=== PATIENT | female | born 1975 | race Caucasian/White ===

== ENCOUNTER → 2018-10-28 06:45 | Outpatient (CLI) | payer OTHER, BC, SELFPAY ==
[2018-10-28 07:40] LABS: Absolute Neutrophil Count 4.7 X10^3/uL (2.0-7.7); Basophil# 0.08 X10^3/uL; Basophil% 1.1 % (0-1); Eosinophil# 0.23 X10^3/uL; Hematocrit 40.7 % (37-47); Hemoglobin 13.8 g/dl (12.0-15.0); Lymphocyte % 27.7 % (19-41); Mean Corp Hgb Conc 33.9 g/gl (32-36); Mean Corpuscular Hgb 29.2 pg (27.0-32.0); Mean Corpuscular Volume 86.2 fL (81-99); Mean Platelet Vol. 9.7 fl (6.2-12.0); Monocyte# 0.47 X10^3/uL; Monocyte% 6.2 % (0-10); Neutrophil # 4.68 X10^3/uL (2.7-7.7); Neutrophil % 61.9 % (47-70); Platelet Count 343 K/mm3 (150-450); RBC Distribution Width CV 12.5 % (11.6-14.6); RBC Distribution Width SD 39.8 fl (35.1-43.9); Red Blood Count 4.72 M/mm3 (4.2-5.4); White Blood Count 7.6 K/mm3 (4.4-11.0)
[2018-10-28 07:44] LABS: POSITIVE COUNT NO; POSITIVE DIFFERENTIAL NO; POSITIVE MORPHOLOGY NO
[2018-10-28 07:51] LABS: Microalbumin,Random Urine 11.7 mg/L (NO RANGE EST.); Microalbumin:Creatinine Ratio 68.8 mg/g CRE (<30 mg/g CRE)
[2018-10-28 07:57] LABS: AST(SGOT) 14 U/L (15-37); Alanine Aminotransfer ALT/SGPT 18 U/L (13-56); Albumin, Serum 3.8 g/dL (3.2-5.0); Alkaline Phosphatase 81 U/L (45-117); Anion Gap 6 (5-15); BUN 14 mg/dL (7-18); BUN/Creat Ratio 14.3 RATIO (10-20); Chloride 104 mmol/L (98-107); Cholesterol 208 mg/dL (200); Creatinine, Serum 0.98 mg/dL (0.55-1.02); EST Glomerular Filtration Rate 66 mL/min (>60); Est Glom Filt Rate - Afr Amer 80 mL/min (>60); Glucose 131 mg/dL (74-106); High Density Lipoprotein 82 mg/dL; Potassium 3.7 mmol/L (3.5-5.1); Protein, Total 7.8 g/dL (6.4-8.2); Sodium Level 138 mmol/L (136-145); Triglycerides 58 mg/dL; Very Low Density Lipoprotein 12 mg/dL (5-40)
[2018-10-28 08:01] LABS: Hemoglobin A1c 8.7 % (4.2-6.3)
== END ==
LOC: LAB 06:50
PROVIDERS: Family Provider Family Medicine; PCP Family Medicine; Referring Provider Family Medicine; Visit Provider Family Medicine
DX: E78.5 Hyperlipidemia, unspecified (principal); E10.9 Type 1 diabetes mellitus without complications
CPT/HCPCS: 36415; 80053; 80061; 82043; 82570; 83036; 85025

== ENCOUNTER 2019-05-22 17:41 | Emergency (ER) | payer OTHER, BC, SELFPAY ==
[2019-05-22 17:42] VITALS: BP 134/92; PULSE 112; RESP 17; TEMP 36.3; O2SAT 100; BMI 31.8
--- NOTE | 2019-05-22 18:05 | RAD_ITS ---
STUDY: X-RAY - LEFT FOOT CLINICAL: Female, 43 years old. LEFT FOOT PAIN -- HEARD A and quot;SNAP and quot; WHEN WALKING TECHNIQUE: 3 view(s) of the foot. COMPARISON: None. FINDINGS: Normal talus, calcaneus, and tarsal bones. Normal visualized subtalar, talonavicular, calcaneocuboid, tarsal and tarsometatarsal articulations. Normal metatarsi. Normal metatarsophalangeal joint of the great toe. Normal tibial and fibular sesamoid bones. Normal interphalangeal joint of the great toe. Normal phalanges of the great toe. Normal second through fifth metatarsophalangeal joints. Normal interphalangeal joints and phalanges of the lesser toes. The soft tissue structures are unremarkable. RAD/Foot min 3 Views IMPRESSION: Normal x-ray examination of the foot. Electronically Signed: Valdemar Quintanilla MD at 18:47 EST , Service support ,
--- NOTE | 2019-05-22 18:15 | RAD_ITS ---
STUDY: X-RAY - LEFT CALCANEUS REASON FOR EXAM: Female, 43 years old. LEFT FOOT PAIN -- HEARD A and quot;SNAP and quot; WHEN WALKING TECHNIQUE: 2 view(s) of the calcaneus were obtained. COMPARISON: None. FINDINGS: There is NO fracture. There are small calcaneal spurs. Soft tissues are unremarkable. RAD/Calcaneus min 2 Views IMPRESSION: Normal x-ray examination of the calcaneus. Electronically Signed: Valdemar Quintanilla MD at 18:43 EST , Service support ,
--- NOTE | 2019-05-22 18:34 | ED.VIS.UPPEX ---
History of Present Illness Chief Complaint: Lower Extremity Injury Informant: Patient Onset: Today Context: Sudden Onset - w/ walking up steps; no injury but heard a snap coming from her left foot Timing: Continuous Quality of Pain: Aching Location: left heel Current Severity: Moderate Maximum Severity: Severe Worsened by: weight bearing Relieved by: rest Associated Symptoms: Negative for: Parasthesia, Weakness, Loss of Funtion Narrative: Patient has been having discomfort in her left heel for 11 months. It has been sore. She saw her doctor about it. All of a sudden today with walking it is acutely worse. She heard a snap coming from that area but does not know exactly where it was from. Dorsiflexion of her foot makes the pain worse as does weightbearing. No other injuries. - Past Medical History (1) Diabetes type 1, uncontrolled Status: Chronic Past Medical History - Allergies and Home Meds Allergies/Adverse Reactions: Allergies prednisone Allergy (Mild, Verified 05/22/19 17:41) Unknown povidone-iodine [From Betadine] Allergy (Verified 05/22/19 17:41) Rash soap [From Betadine] Allergy (Verified 05/22/19 17:41) Rash Primary Care Physician: Cindy Weber DO [Primary Care Provider] - Lives: With Family Smoking Status: Never smoker Review of Systems General: Denies: Chills, Fever, Sweats Musculoskeletal: Reports: Extremity Pain. Denies: Neck pain, Back pain, Swelling Skin: Denies: Rash, Wounds Neurological: Denies: Headache, Weakness, Numbness Physical Exam Vital Signs/Narrative: Vital Signs Temp Pulse Resp BP Pulse Ox 05/22/19 17:42 97.3 F L 112 H 17 134/92 H 100 General: Well nourished, Well developed Head: Normocephalic, Atraumatic Extremeties: Normal inspection left foot and ankle. Tender at the calcaneus. Nontender just anterior to the calcaneus and the plantar fascia. Strong plantar flexion, nontender Achilles which appears to be intact. Limited dorsiflexion due to pain at the calcaneus. No edema or sign of an injury or laceration or bruising. No midfoot or forefoot or ankle tenderness. Skin: Normal color, No rash, No Trauma Neurological: Alert, Oriented x3, Cranial nerves II-XII grossly intact, Normal Strength, Normal Sensation Psychological: Normal affect, Normal Mood Diagnostic/Tx/Re-eval Clinical Impression(s) from Imaging Studies Foot X-Ray 05/22/19 18:05 IMPRESSION: Normal x-ray examination of the foot. Electronically Signed: Valdemar Quintanilla MD at 18:47 EST , Service support , Os Calcis X-ray 05/22/19 18:15 IMPRESSION: Normal x-ray examination of the calcaneus. Electronically Signed: Valdemar Quintanilla MD at 18:43 EST , Service support , - Medical Decision Making X-rays are unremarkable. I think she should follow-up with podiatry. She is in agreement. She is given postop shoe and crutches and she is fine using ibuprofen as needed. She is comfortable with that plan. ED Disposition - Plan for ED Patient: Disposition: Home or Assisted Living Diagnosis: Left foot pain Instructions: Sprain Foot Referrals: Trudy Johnson DPM [STAFF PHYSICIAN] - (call for appt)
[2019-05-22 20:33] VITALS: BP 113/71; PULSE 76; RESP 17; O2SAT 99
== END 2019-05-22 20:37 | disposition home or self-care (01) ==
PROVIDERS: Emergency Provider Emergency Medicine; Family Provider Family Medicine; PCP Family Medicine
DX: M79.672 Pain in left foot (principal); E10.9 Type 1 diabetes mellitus without complications; Z79.4 Long term (current) use of insulin
CPT/HCPCS: 73630; 73650; 99283

== ENCOUNTER → 2020-01-24 07:01 | Outpatient (CLI) | payer OTHER, BC, SELFPAY | PROVIDERS: PCP Family Medicine; Visit Provider Family Medicine | DX: E10.9 Type 1 diabetes mellitus without complications (principal); Z51.81 Encounter for therapeutic drug level monitoring | CPT/HCPCS: 36415 ==

== ENCOUNTER → 2023-09-12 | Outpatient (CLI) | payer OTHER, BC, SELFPAY ==
--- NOTE | 2023-09-12 07:16 | BI_ITS ---
MAMMOGRAPHY - BILATERAL SCREENING REASON FOR EXAM: Female, 48 years old. Routine annual screening examination. PERTINENT HISTORY: Aunt with breast cancer. TECHNIQUE: Digital bilateral breast milla (3D mammographic acquisition) in the CC and MLO projections. 2-D mediolateral oblique (MLO) and craniocaudad (CC) views of both breasts were obtained. CAD: Full Field Digital Mammography with Computer Added Detection was performed. COMPARISON: Comparison is made with prior study dated July 26, 2016. FINDINGS: Breast Composition: The breasts are extremely dense, which lowers the sensitivity of mammography. There are no dominant masses or suspicious calcifications. No other significant abnormalities are identified. There has been no significant change since the prior study. BI/SCRN MAMM (CAD)W/MILLA BILAT IMPRESSION: Stable bilateral screening mammogram. Yearly follow-up mammogram recommended. (A) ASSESSMENT CATEGORY: BIRADS Category 1: Negative. A letter regarding these results will be sent to the patient by the facility within 30 days. Approximately 10% of breast cancers are not detected by mammography. A normal mammogram should not delay biopsy of a clinically suspicious abnormality. [id number] Electronically Signed: Ronnie Perry MD at 10:14 EDT ,
== END | disposition home or self-care (01) ==
LOC: OPBI 07:13
PROVIDERS: PCP Family Medicine; Referring Provider Family Medicine; Visit Provider Family Medicine
DX: Z12.31 Encounter for screening mammogram for malignant neoplasm of breast (principal)
CPT/HCPCS: 77063; 77067

== ENCOUNTER → 2024-12-02 | Outpatient (CLI) | payer OTHER, BC, SELFPAY ==
--- NOTE | 2024-12-02 17:25 | RAD_ITS ---
PROCEDURE: SHOULDER MIN 2 VIEWS 12/02/2024 REASON FOR EXAM: CONCERN FOR FRACTURE TECHNIQUE: SHOULDER MIN 2 VIEWS COMPARISON: None RAD/Shoulder min 2 Views IMPRESSION: No acute fracture or dislocations. Mild degenerative changes of the left should er. No acute soft tissue abnormalities. No radiographic foreign body. Reading Location: [id number]
== END | disposition home or self-care (01) ==
PROVIDERS: PCP Family Medicine; Referring Provider Nurse Practitioner Family; Visit Provider Nurse Practitioner Family
DX: M25.512 Pain in left shoulder (principal)
CPT/HCPCS: 73030

== ENCOUNTER → 2025-04-28 | Outpatient (CLI) | payer OTHER, BC, SELFPAY ==
--- NOTE | 2025-04-28 07:08 | MRI_ITS ---
PROCEDURE: UPPER EXT JOINT ONLY(ROUTINE) 04/28/2025 REASON FOR EXAM: LEFT SHOULDER PAIN AND LIMITED ROM TECHNIQUE: Procedure Code: MRIUEJ Modality: MR Procedure: UPPER EXT JOINT ONLY(ROUTINE) T1, T2, PD, multiplanar and multisequence images were obtained of the left shoulder without IV contrast administration. COMPARISON: None FINDINGS: Bone Marrow: There is a bony contusion or occult fracture. Rotator cuff: There is no significant muscular atrophy. There is severe distal supraspinatus tendinopathy without full-thickness tear or retraction. The infraspinatus, subscapularis, and teres minor appear intact. Labrum: There is no visible labrum tear. Biceps tendon: The biceps tendon is present in the biceps tendon groove, with intact anchors. AC joint. There is mild AC joint hypertrophy with a trace effusion. There is no evidence of AC joint separation. There is a type 2 acromion. Effusion: There is a small joint effusion. There is fluid in the subacromial subdeltoid bursa, with bursitis. MRI/Upper Ext Joint Only(Routine) IMPRESSION: There is severe distal supraspinatus tendinopathy without full-thickness tear o r retraction. There is mild AC joint hypertrophy with a trace effusion. There is a small joint effusion. There is fluid in the subacromial subdeltoid bursa, with bursitis. Reading Location: [facility]
--- OUTSIDE RECORDS SUMMARY | 2025-04-28 07:11 | XMS RPT_ITS | CCD ---
Author Organization [facility] Inform ion Partnership [facility] Care Team Providers Care Can Line Examiner Name Role Phone Valeria Sanabria NP Unavailable Dr. Cindy Weber DO Primary Care Provider Rahul CONSULTING HR PROFESSIONAL-C, Suzi Attending Provider [phone] Rahul CONSULTING HR PROFESSIONAL-CSuzi Referring Provider [phone] Cindy Weber Primary Care Unavailable Suzi Kay Referring Unavailable Suzi Kay Attending Unavailable Cindy Weber DO Primary Care Provider CINDY WEBER Primary Care Unavailable PRUDENCIO MOSER Attending Unavailable CINDY WEBER Primary Care Unavailable GWENDOLYN MCCALL Attending Unavailable GWENDOLYN MCCALL Referring Unavailable CINDY WEBER Primary Care Unavailable Allergies Allergy Classification Reported Allergen(s) Allergy Type Date of Onset Reaction(s) Facility (6 sources) predniSONE; Translations: [prednisone] drug allergy 4 BS went over 500, Raises blood sugar [facility] Work Phone: (4 sources) Povidone-Iodine ; Translations: [POVIDONE-IODIN E] Drug Allergy 5 [facility] Medications Current Medications Medication Drug Class(es) Dates Sig (Normalized) Sig (Original) [id number] actuat albuterol 0.09 mg/actuat metered dose inhaler (12 sources) beta2-Adrenergic Agonist Start: 01-07-2025 take 2 puff(s) by inhalation every six hours as needed for wheezing albuterol HFA (PROVENTIL HFA, VENTOLIN HFA) 90 mcg/actuation inhaler Inhale 2 puffs as instructed every 6 hours as needed for wheezing/shortnes s of breath. 8 g 01/07/2025 Active Start: 03-18-2021 take 2 puff(s) by in halation every four hours as needed for wheezing albuterol HFA (PROVENTIL HFA, VENTOLIN HFA) 90 mcg/actuation inhaler Indications: Sinobronchitis Inhale 2 Puffs as instructed every 4 hours as needed for wheezing/shortness of breath. 1 Each 1 03/18/2021 Active Start: 04-03-2013 take 2 puff(s) by in halation every four hours as needed PROAIR HFA 108 (90 Base) MCG/ACT AERS 2 puff INH every 4hr as needed shortness of breath ALBUTEROL SULFATE [id number] Yi Montes MD Start: 04-03-2013 take 2 puff(s) by in halation every four hours as needed PROAIR HFA 108 (90 Base) MCG/ACT AERS 2 puff INH every 4hr as needed shortness of breath ALBUTEROL SULFATE [id number] Yi Montes MD Start: 08-13-2010 End: 08-23-2010 VENTOLIN HFA 108 (90 Base) M CG/ACT AERS 1-2 puffs every 4 hours as needed ALBUTEROL SULFATE [id number] Sammie Branch PA-C Start: 08-13-2010 End: 08-23-2010 VENTOLIN HFA 108 (90 Base) M CG/ACT AERS 1-2 puffs every 4 hours as needed ALBUTEROL SULFATE [id number] Sammie Branch PA-C 24 hr amphetamine aspartate 5 mg / amphetamine sulfate 5 mg / dextroamphetamine saccharate 5 mg / dextroamphetamine sulfate 5 mg extended release oral capsule (2 sources) Central Nervous System Stimulant Start: 12-20-2020 take 1 capsule by mouth once daily Dextroamphetamine-Amphetamine 20 mg capsule,extended release 24hr Active 20 mg PO DAILY 0 December 20, 2020 12:00am benzonatate 100 mg oral capsule (16 sources) Non-narcotic Antitussive Start: 01-07-2025 End: 01-14-2025 take 1 capsule by mouth every eight hours as needed benzonatate (TESSALON PERLE) 100 mg capsule Take 1 capsule by mouth three times a day as needed for cough for up to 7 days. 21 capsule 01/07/2025 01/14/2025 Active Start: 12-25-2018 take 2 capsules by m outh every eight hours as needed benzonatate (TESSALON PERLES) 100 mg capsule Take 2 capsules by mouth three times daily as needed. 30 capsule 12/25/2018 Active Start: 09-09-2012 End: 01-12-2014 take 1 tablet by mouth three times daily as needed for cough BENZONATATE 200 MG CAPS One tablet by mouth three times daily as needed cough, swallow in whole BENZONATATE [id number] Yi Montes MD Start: 10-18-2011 End: 12-18-2011 take 1 tablet by mouth twice daily as needed for cough BENZONATATE 200 MG CAPS One tablet by mouth twice daily as needed cough, swollow it in whole BENZONATATE [id number] Yi Montes MD COMPOUNDED PRESCRIPTION (3 sources) Start: 02-21-2011 COMPOUNDED PRESCRIPTION by MISCELLANEOUS route. Massotherapy for chronic pain. 1 Units 9 02/21/2011 Active doxycycline hyclate 100 mg oral tablet (7 sources) Tetracycline -class Drug Start: 01-07-2025 End: 01-12-2025 take 1 tablet by mouth twice daily doxycycline (VIBRA-TABS) 100 mg tablet Take 1 tablet by mouth two times a day for 5 days. 10 tablet 01/07/2025 01/12/2025 Active Start: 06-16-2015 End: 08-12-2015 take 1 tablet by mouth twice daily DOXYCYCLINE HYCLATE 100 MG TABS 1 po Twice daily x 10 days DOXYCYCLINE HYCLATE [id number] Cindy Weber, FLUoxetine 10 mg oral capsule (2 sources) Serotonin Reuptake Inhibitor Start: 12-20-2020 take 1 capsule by mouth once daily Fluoxetine 10 mg capsule Active 10 mg PO DAILY December 20, 2020 12:00am fluticasone propionate 0.05 mg/actuat metered dose nasal spray (3 sources) Corticosteroid Start: 12-25-2018 take 2 spray(s) by mouth once daily fluticasone (FLONASE) 50 mcg/actuation nasal spray Use 2 Sprays in each nostril once daily. Rinse mouth after use. 1 Bottle 12/25/2018 Active Inhalational Spacing Device (1 source) Start: 01-07-2025 End: 01-07-2025 Inhalational Spacing Device 1 device one time only for 1 dose. 1 each 01/07/2025 01/07/2025 Active 3 ml insulin lispro 100 unt/ml cartridge (7 sources) Insulin Analogue Start: 12-20-2020 Insulin Lispro (Humalog U-100 Insulin) 100 unit/mL cartridge Active 1 sliding scale dose SC Use as Directed December 20, 2020 12:00am Start: 12-20-2020 Insulin Lispro (Humalog U-100 Insulin) 100 unit/mL cartridge Active 1 sliding scale dose SC Use as Directed December 20, 2020 12:00am Start: 08-06-2013 End: 07-26-2017 Insulin Lispro 100 UNIT/ML s olution Discontinued 0 U SQ THREE TIMES A DAY August 06, 2013 12:00am July 26, 2017 6:08pm Start: 08-06-2013 End: 07-26-2017 Insulin Lispro Discontinued 0 UNIT SQ THREE TIMES A DAY August 06, 2013 12:00am July 26, 2017 6:08pm Start: 07-16-2010 HUMALOG 100 UN IT/ML SOLN as directed INSULIN LISPRO (HUMAN) [id number] Valeria Sanabria NP Start: 07-16-2010 HUMALOG 100 UN IT/ML SOLN as directed INSULIN LISPRO (HUMAN) [id number] Valeria Sanabria NP lisinopril 40 mg oral tablet (12 sources) Angiotensin Converting Enzyme Inhibitor Start: 12-20-2020 Lisinopril 40 mg tab let Active 20 mg PO AT BEDTIME December 20, 2020 8:06am Type 1 diabetes mellitus with hyperglycemia Start: 12-20-2020 take 20 mg by mouth at bedtime Lisinopril Active 20 MG PO AT BEDTIME December 20, 2020 8:06am Start: 08-06-2013 End: 12-20-2020 take 1 tablet by mouth once daily lisinopril (ZESTRIL, PRINIVIL) 40 mg tablet Take 1 tablet by mouth once daily. 90 tablet 3 04/26/2015 Active methylPREDNISolone 4 mg oral tablet (2 sources) Corticosteroid Start: 09-19-2021 take 1 tablet by mouth once Methylprednisolone (Medrol (Pradip)) 4 mg tablets,dose pack Active 0 PO per package directions 21 September 19, 2021 12:00am PO PER PKG DIR MULTIVITAMIN TAB (3 sources) Start: 03-07-2005 MULTIVITAMIN TAB Take one(1) tablet daily. 0 03/07/2005 Active pravastatin sodium 20 mg oral tablet (12 sources) HMG-CoA Reductase Inhibitor Start: 12-20-2020 take 2 tablets by mouth at bedtime Pravastatin 20 mg tablet Active 40 mg PO AT BEDTIME December 20, 2020 8:06am Type 1 diabetes mellitus with hyperglycemia Start: 12-20-2020 take 40 mg by mouth at bedtime Pravastatin Active 40 MG PO AT BEDTIME December 20, 2020 8:06am Start: 08-06-2013 End: 12-20-2020 take 1 tablet by mouth once daily at bedtime pravastatin (PRAVACHOL) 20 mg tablet Take 1 tablet by mouth daily at bedtime. 90 tablet 3 04/26/2015 Active take 1 tablet by olivier th at bedtime PRAVASTATIN SODIUM 10 MG TABS One tablet by mouth at bedtime PRAVASTATIN SODIUM [id number] Valeria Sanabria NP predniSONE 10 mg oral tablet (13 sources) Corticosteroid Start: 01-19-2025 End: 01-28-2025 take 4 tablets by mouth once daily, then take 3 tablets by mouth once daily, then take 1 tablet by mouth once daily predniSONE (DELTASONE) 10 mg tablet Indications: Viral bronchitis Take 4 tablets by mouth once daily for 3 days, THEN 3 tablets once daily for 3 days, THEN 1 tablet once daily for 3 days. 24 tablet 01/19/2025 01/28/2025 Active Start: 06-16-2015 End: 08-12-2015 take 2 tablets by mouth once daily PREDNISONE 20 MG TABS 2 po daily x 5 days PREDNISONE [id number] Cindy Weber DO Start: 12-10-2013 End: 01-12-2014 take 1 tablet by mouth twice daily PREDNISONE 20 MG TABS .One tablet by mouth twice daily x 3 days PREDNISONE [id number] Jianming Montes MD valACYclovir 1000 mg oral tablet (2 sources) Herpesvirus Nucleoside Analog DNA Polymerase Inhibitor, Herpes Simplex Virus Nucleoside Analog DNA Polymerase Inhibitor, Herpes Zoster Virus Nucleoside Analog DNA Polymerase Inhibitor Start: 09-19-2021 Valacyclovir 1 gram tablet Active 1000 mg PO THREE TIMES A DAY September 19, 2021 12:00am Start: 09-19-2021 take 1000 mg by mout h three times daily Valacyclovir Active 1000 MG PO THREE TIMES A DAY September 19, 2021 12:00am Completed/Discontinued Medications Medication Drug Class(es) Dates Sig (Normalized) Sig (Original) amoxicillin 500 mg oral capsule (6 sources) Penicillin-class Antibacterial Start: 09-04-2012 End: 04-03-2013 take 1 tablet by mouth three times daily AMOXICILLIN 500 MG CAPS One tablet by mouth three times daily AMOXICILLIN [id number] Yi Montes MD aspirin 81 mg chewable tablet (11 sources) Nonsteroidal Anti-inflammatory Drug Start: 08-06-2013 End: 12-20-2020 take 1 tablet by mouth once daily Aspirin 81 MG tablet,chewable Discontinued 81 mg PO DAILY@0800 August 06, 2013 12:00am December 20, 2020 8:06am Start: 12-18-2011 take 1 tablet by olivier th once daily ADULT ASPIRIN LOW STRENGTH 81 MG TBDP One tablet by mouth daily ASPIRIN Saranya Gloria [facility] Start: 03-07-2005 ASPIRIN 81 MG TAB Take one (1) tablet daily . 0 03/07/2005 Active azithromycin 250 mg oral tablet (18 sources) Macrolide Antimicrobial Start: 02-16-2011 End: 12-10-2013 take 2 tablets by mouth once daily, then take 1 tablet by mouth once daily, then take 2-5 tablets by mouth AZITHROMYCIN 250 MG TABS two tablets by mouth on day one, and one tablets daily one day 2-5 AZITHROMYCIN [id number] Yi Montes MD GUAIFENESIN-CODEINE (18 sources) Opioid Agonist Start: 09-04-2012 take 5 mL by mouth every six hours as needed for cough CHERATUSSIN AC 100-10 MG/5ML SYRP 5ml by mouth every 6hr as needed cough GUAIFENESIN-CODEIN E [id number] Yi Montes MD Start: 09-04-2012 End: 01-12-2014 take 5 mL by mouth every six hours as needed for cough CHERATUSSIN AC 100-10 MG/5ML SYRP 5ml by mouth every 6hr as needed cough GUAIFENESIN-CODEINE [id number] Yi Montes MD Start: 10-16-2011 End: 12-18-2011 take 5 mL by mouth every six hours as needed for cough CHERATUSSIN AC 100-10 MG/5ML SYRP 5ml by mouth every 6hr as needed cough, avoid driving or operating machine under the influence of medication. GUAIFENESIN-CODEINE [id number] Yi Montes MD Start: 10-16-2011 take 5 mL by mouth e very six hours as needed for cough CHERATUSSIN AC 100-10 MG/5ML SYRP 5ml by mouth every 6hr as needed cough, avoid driving or operating machine under the influence of medication. GUAIFENESIN-CODEINE [id number] Yi Montes MD Start: 02-16-2011 End: 01-12-2014 take 5 mL by mouth every six hours as needed for cough CHERATUSSIN AC 100-10 MG/5ML SYRP 5ml by mouth every 6hr as needed cough GUAIFENESIN-CODEINE [id number] Yi Montes MD Start: 02-16-2011 End: 03-20-2011 CHERATUSSIN AC 100-10 MG/5ML SYRP 5ml every 6hr as needed cough GUAIFENESIN-CODEINE [id number] Yi Montes MD Start: 02-16-2011 CHERATUSSIN AC 100-10 MG/5ML SYRP 5ml every 6hr as needed cough GUAIFENESIN-CODEINE [id number] Yi Montes MD DEXTROMETHORPHAN-GUAIFENESIN (6 sources) Uncompetitive I-gxtvyb-E-aspartate Receptor Antagonist, Sigma-1 Agonist Start: 02-16-2011 End: 10-16-2011 MUCINEX DM MAXIMUM STRENGTH 60-1200 MG [id number] DEXTROMETHORPHAN-GUAIFENESIN [id number] Yi Montes MD Start: 02-16-2011 End: 10-16-2011 MUCINEX DM MAXIMUM STRENGTH 60-1200 MG [id number] KATHYTHORPHAN-GUAIFENESIN [id number] Yi Montes MD Start: 02-16-2011 MUCINEX DM MAX IMUM STRENGTH 60-1200 MG [id number] DEXTROMETHORPHAN-GUAIFENESIN [id number] Yi Montes MD NORETHINDRONE ACET-ETHINYL EST (2 sources) Estrogen Start: 11-18-2012 take 1 tablet by mouth once daily MICROGESTIN 1/20 1-20 MG-MCG TABS One tablet by mouth daily NORETHINDRONE ACET-ETHINYL EST [id number] Yi Montes MD Start: 11-18-2012 End: 01-12-2014 take 1 tablet by mouth once daily MICROGESTIN 1/20 1-20 MG-MCG TABS One tablet by mouth daily NORETHINDRONE ACET-ETHINYL EST [id number] Yi Montes MD NORGESTIM-ETH ESTRAD TRIPHASIC (1 source) Progestin, Estrogen Start: 01-16-2011 take 1 tablet by mouth once daily ORTHO TRI-CYCLEN LO 0.18/0.215/0.25 MG-25 MCG TABS One tablet by mouth daily NORGESTIM-ETH ESTRAD TRIPHASIC [id number] Yi Montes MD NORETHINDRONE ACET-ETHINYL EST (8 sources) Progestin, Estrogen Start: 11-18-2012 take 1 tablet by mouth once daily MICROGESTIN 1/20 1-20 MG-MCG TABS One tablet by mouth daily NORETHINDRONE ACET-ETHINYL EST [id number] Yi Montes MD Start: 11-18-2012 End: 01-12-2014 take 1 tablet by mouth once daily MICROGESTIN 1/20 1-20 MG-MCG TABS One tablet by mouth daily NORETHINDRONE ACET-ETHINYL EST [id number] Yi Montes MD Start: 01-17-2011 End: 03-20-2011 take 1 tablet by mouth once daily LOESTRIN /20 (21) TABS One tablet by mouth daily as directed NORETHINDRONE ACET-ETHINYL EST TABS [id number] Yi Montes MD Start: 01-17-2011 take 1 tablet by olivier th once daily LOESTRIN 1/20 (21) TABS One tablet by mouth daily as directed NORETHINDRONE ACET-ETHINYL EST TABS [id number] Yi Montes MD fluconazole 200 mg oral tablet (6 sources) Azole Antifungal Start: 08-11-2011 End: 10-16-2011 take 1 tablet by mouth once FLUCONAZOLE 200 MG TABS One tablet by mouth once FLUCONAZOLE [id number] Yi Montes MD GUAIFENESIN (3 sources) Start: 07-16-2010 End: 07-23-2010 take 1 tablet by mouth every twelve hours MUCINEX 600 MG [id number] 1 tab by mouth every 12 hours GUAIFENESIN [id number] Maria Teresa CONN Start: 07-16-2010 End: 07-23-2010 take 1 tablet by mouth every twelve hours MUCINEX 600 MG [id number] 1 tab by mouth every 12 hours GUAIFENESIN [id number] Maria Teresa CONN hydrocortisone 10 mg/ml / neomycin 3.5 mg/ml / polymyxin b 36667 unt/ml otic suspension (6 sources) Aminoglycoside Antibacterial, Polymyxin-class Antibacterial, Corticosteroid Start: 02-17-2013 End: 01-12-2014 [id number] 3.5-43080-3 SUSP 3-4 gtt apply to affected ear three times a day [id number] Yi Montes MD ibuprofen 800 mg oral tablet (3 sources) Nonsteroidal Anti-inflammatory Drug Start: 04-09-2015 take 1 tablet by mouth three times daily IBUPROFEN 800 MG TABS 1 po TID IBUPROFEN [id number] Cindy Weber DO insulin aspart, human 100 unt/ml injectable solution (13 sources) Insulin Analogue Start: 07-26-2017 End: 12-20-2020 Insulin Aspart U-100 (Novolog U-100 Insulin Aspart) 100 unit/mL solution Discontinued 0 SC daily 90 3 July 28, 2017 1:03pm December 20, 2020 8:05am Type 1 diabetes mellitus with hyperglycemia E10.65 pt uses up to 100U qd via insulin pump SC QDAY Start: 04-26-2015 insulin aspart (NOVOLOG) 100 unit/mL soln Use as directed in the insulin pump up to 100 units daily0 90 mL 3 04/26/2015 Active End: 02-16-2011 NOVOLOG PENFILL 100 UNIT/ML SOCT as directed up to 100 units daily INSULIN ASPART [id number] Yi Montes MD levoFLOXacin 500 mg oral tablet (6 sources) Quinolone Antimicrobial Start: 10-20-2011 End: 12-18-2011 take 1 tablet by mouth once daily LEVAQUIN 500 MG TABS One tablet by mouth daily LEVOFLOXACIN [id number] Yi Montes MD MASSOTHERAPY (6 sources) Start: 06-14-2011 MASSOTHERAPY as needed DX: neck and back pain MASSOTHERAPY Yi Montes MD Start: 06-14-2011 End: 12-12-2016 MASSOTHERAPY as needed DX: n carin and back pain MASSOTHERAPY Saranya Gloria LPN MULTIPLE VITAMIN (4 sources) Start: 01-12-2014 End: 12-12-2016 take 1 tablet by mouth once daily MULTIVITAMINS CAPS One tablet by mouth daily MULTIPLE VITAMIN [id number] Saranya Gloria LPN Start: 01-12-2014 take 1 tablet by olivier th once daily MULTIVITAMINS CAPS One tablet by mouth daily MULTIPLE VITAMIN [id number] Yi Montes MD MULTIPLE VITAMIN (2 sources) Start: 01-12-2014 End: 12-12-2016 take 1 tablet by mouth once daily MULTIVITAMINS CAPS One tablet by mouth daily MULTIPLE VITAMIN [id number] Saranya Gloria LPN Start: 01-12-2014 take 1 tablet by olivier th once daily MULTIVITAMINS CAPS One tablet by mouth daily MULTIPLE VITAMIN [id number] Yi Montes MD NORETHINDRONE ACET-ETHINYL EST TABS (2 sources) Start: 01-17-2011 take 1 tablet by mouth once daily LOESTRIN 20 (21) TABS One tablet by mouth daily as directed NORETHINDRONE ACET-ETHINYL EST TABS [id number] Yi Montes MD Start: 01-17-2011 End: 03-20-2011 take 1 tablet by mouth once daily LOESTRIN 20 (21) TABS One tablet by mouth daily as directed NORETHINDRONE ACET-ETHINYL EST TABS [id number] Yi Montes MD omeprazole 20 mg delayed release oral capsule (12 sources) Proton Pump Inhibitor Start: 08-02-2015 End: 12-12-2016 OMEPRAZOLE 20 MG CPDR 1 po daily OMEPRAZOLE [id number] Cindy Weber DO Start: 12-18-2011 End: 01-12-2014 take 1 tablet by mouth once daily as needed for gastroesophageal reflux disease PRILOSEC OTC 20 MG TBEC One tablet by mouth daily as needed GERD OMEPRAZOLE MAGNESIUM [id number] Yi Montes MD Start: 12-18-2011 End: 01-12-2014 take 1 tablet by mouth once daily as needed for gastroesophageal reflux disease PRILOSEC OTC 20 MG TBEC One tablet by mouth daily as needed GERD OMEPRAZOLE MAGNESIUM [id number] Yi Montes MD sertraline 50 mg oral tablet (20 sources) Serotonin Reuptake Inhibitor Start: 08-12-2015 take 1 tablet by mouth once daily SERTRALINE HCL 50 MG TABS 1 po daily SERTRALINE HCL [id number] Cindy Weber DO Start: 02-02-2015 End: 08-12-2015 take 1 tablet by mouth once daily at bedtime, then take 2 tablets by mouth once daily at bedtime SERTRALINE HCL 25 MG TABS 1 po daily at bedtime x 2 weeks then 2 po daily at bedtime SERTRALINE HCL [id number] Cindy Weber DO Start: 01-12-2014 End: 01-29-2015 take 1 tablet by mouth once daily SERTRALINE HCL 50 MG TABS One tablet by mouth daily SERTRALINE HCL [id number] Cindy Weber DO End: 10-16-2011 take 1 tablet by mouth once daily SERTRALINE HCL 50 MG TABS One tablet by mouth daily SERTRALINE HCL [id number] Yi Montes MD SALINE (6 sources) Start: 07-16-2010 End: 01-12-2014 OCEAN NASAL SPRAY 0.65 % JOHN N 2-3 sprays each nostril every 4 hours as needed for congestion SALINE [id number] Maria Teresa CONN Start: 07-16-2010 End: 01-12-2014 OCEAN NASAL SPRAY 0.65 % JOHN N 2-3 sprays each nostril every 4 hours as needed for congestion SALINE [id number] Yi Montes MD Start: 07-16-2010 OCEAN NASAL SP RAY 0.65 % SOLN 2-3 sprays each nostril every 4 hours as needed for congestion SALINE [id number] Maria Teresa CONN SULFAMETHOXAZOLE-TRIMETHOPRI M (3 sources) Dihydrofolate Reductase Inhibitor Antibacterial, Sulfonamide Antimicrobial Start: 07-16-2010 End: 07-26-2010 take 1 tablet by mouth twice daily BACTRIM DS 800-160 MG TABS 1 tab by mouth 2 times daily SULFAMETHOXAZOLE-TRIMETHOPRIM [id number] Maria Teresa CONN Start: 07-16-2010 End: 07-26-2010 take 1 tablet by mouth twice daily BACTRIM DS 800-160 MG TABS 1 tab by mout h 2 times daily SULFAMETHOXAZOLE-TRIMETHOPRIM [id number] Maria Teresa CONN NORGESTIM-ETH ESTRAD TRIPHASIC (2 sources) Vitamin B12 Start: 01-16-2011 take 1 tablet by mouth once daily ORTHO TRI-CYCLEN LO 0.18/0.215/0.25 MG-25 MCG TABS One tablet by mouth daily NORGESTIM-ETH ESTRAD TRIPHASIC [id number] Yi Montes MD Problems Active Problems Problem Classification Problem Date Documented Date Episodic/Chronic Acute bronchitis (20 sources) Acute bronchitis; Translations: [Acute bronchitis, unspecified] Onset: 08-07-2005 Resolved: 12-10-2013 12-10-2013 Episodic Chronic obstructive pulmonary disease and bronchiectasis (1 source) Bronchitis, not specified as acute or chronic; Translations: [Sinobronchitis] Onset: 01-07-2025 Episodic Diabetes mellitus with complications (1 source) Type 1 diabetes mellitus uncontrolled; Translations: [Diabetes mellitus without mention of complication, type I [juvenile type], uncontrolled] 05-22-2019 Chronic Diabetes mellitus with complications (2 sources) Diabetes mellitus with complications; Translations: [Uncontrolled type 1 diabetes mellitus without complication, with long-term current us] 05-29-2017 Comment on above: Here for sensor inte rpretation. Pt notes of diet, BG and bolus's reviewed with patinet as well as sensor download Diabetes mellitus without complication (7 sources) Type 1 diabetes mellitus; Translations: [Uncontrolled type 1 diabetes mellitus] 07-16-2010 Chronic Esophageal disorders (3 sources) Gastroesophageal reflux disease; Translations: [Gastro-esophageal reflux disease without esophagitis] Onset: 12-18-2011 12-18-2011 Chronic Menstrual disorders (3 sources) Irregular periods; Translations: [Irregular menstruation, unspecified] Onset: 01-16-2011 01-16-2011 Chronic Other connective tissue disease (2 sources) Lateral epicondylitis of left humerus; Translations: [Lateral epicondylitis, left elbow] 12-20-2020 Episodic Other connective tissue disease (2 sources) Radial styloid tenosynovitis; Translations: [Radial styloid tenosynovitis [de Quervain]] 12-20-2020 Episodic Other connective tissue disease (2 sources) Foot pain; Translations: [Pain in left foot] 05-23-2019 Episodic Other female genital disorders (3 sources) Premenstrual dysphoric disorder; Translations: [Premenstrual tension syndrome] Onset: 01-16-2011 01-16-2011 Chronic Other lower respiratory disease (2 sources) Cough; Translations: [Subacute cough] 01-19-2025 Episodic Other non-traumatic joint disorders (1 source) Pain in left shoulder; Translations: [Pain in left shoulder] Onset: 12-08-2024 Episodic Other upper respiratory disease (3 sources) Allergic rhinitis, cause unspecified; Translations: [Allergic rhinitis, cause unspecified] Onset: 08-13-2010 08-13-2010 Chronic Other upper respiratory infections (2 sources) Chronic sinusitis; Translations: [Chronic sinusitis, unspecified] Onset: 01-07-2025 01-07-2025 Chronic Unclassified (4 sources) General examination of patient ; Translations: [Encounter for other general examination] Onset: 03-20-2011 03-20-2011 Unclassified (3 sources) Acute reaction to stress; Translations: [Acute reaction to stress] Onset: 01-12-2014 01-12-2014 Unclassified (1 source) Subacute cough; Translations: [Subacute cough] Onset: 01-19-2025 Viral infection (2 sources) Herpes zoster; Translations: [Zoster without complications] 09-19-2021 Episodic Past or Other Problems Problem Classification Problem Date Documented Date Episodic/Chronic Genitourinary symptoms and ill-defined conditions (3 sources) Abnormal urinalysis; Translations: [Unspecified abnormal findings in urine] Onset: 02-17-2013 02-17-2013 Episodic Inflammation, infection of eye (3 sources) Iritis; Translations: [Unspecified iridocyclitis] Onset: 03-06-2011 03-20-2011 Episodic Other connective tissue disease (3 sources) Acquired trigger finger; Translations: [Trigger finger, unspecified finger] Onset: 02-04-2013 02-04-2013 Episodic Other ear and sense organ disorders (6 sources) Otitis externa; Translations: [Unspecified otitis externa, unspecified ear] Onset: 02-17-2013 Resolved: 04-03-2013 04-03-2013 Episodic Other eye disorders (3 sources) Pain in eye; Translations: [Ocular pain, left eye] Onset: 03-06-2011 03-06-2011 Episodic Other lower respiratory disease (5 sources) Chronic cough; Translations: [Cough] Onset: 08-13-2010 Resolved: 09-12-2010 07-28-2015 Episodic Other lower respiratory disease (1 source) Cough; Translations: [Cough] Onset: 08-13-2010 Resolved: 09-12-2010 08-13-2010 Episodic Other upper respiratory disease (3 sources) Hoarse; Translations: [Dysphonia] Onset: 12-10-2013 12-10-2013 Episodic Other upper respiratory infections (12 sources) Acute sinusitis; Translations: [Acute sinusitis, unspecified] Onset: 07-16-2010 Resolved: 02-17-2013 10-16-2011 Episodic Spondylosis; intervertebral disc disorders; other back problems (6 sources) Neck pain; Translations: [Cervicalgia] Onset: 06-14-2011 Resolved: 02-17-2013 06-15-2011 Episodic Unclassified (3 sources) FH: premature coronary heart disease; Translations: [Family history of ischemic heart disease and other diseases of the circulatory system] Onset: 01-16-2011 01-17-2011 Episodic Unclassified (2 sources) application of CGM 02-01-2022 Comment on above: Continous glucose mo nitoring Unclassified (2 sources) continous glucose monitoring interpretation 02-01-2022 Comment on above: See note below Results Test Name Value Interpretation Reference Range Facility OV 01-19-2025 CNOV Office Visit ([facility]) RACHEL MONEA ([id number]) 1975 F Date Time Provider Department 01/19/25 12:15 PM GWENDOLYN MCCALL During your visit today, we recorded the following information about you: Temperature Pulse Respiration Blood pressure 97.9 degrees 93/minute 19/minute 144/82 Weight 85.4 kg Gwendolyn Mccall, LOU.CREDIT COLLECTIONS SPECIALIST 01/19/2025 1:13 PM Signed [facility] Subjective Rachel Monae is a 49 year old female. Patient presents with: Cough: Chest congestion, sob x 2 weeks Cough Cough and Congestion: - Cough and congestion x2 weeks. - Using Mucinex DM without relief; reports feeling like there's something in my chest that I need to cough out. - Previously prescribed Tessalon Perles, but has been taking Repetussin instead. - Denies fever, chills, or sweating. - Reports significant post-nasal drainage, but denies nasal congestion. - Cough worsens when trying to sleep. - Took doxycycline as prescribed for sinobronchitis on 01/07/25-no improvement. Dyspnea: - Dyspnea x2 weeks. - Using albuterol inhaler Q4H for relief. Back Pain: - Localized back pain, exacerbated by standing up and bending down. Review of Systems Respiratory: Positive for cough. Constitutional: (+) sleep disturbance, (-) fever, (-) chills, (-) diaphoresis Ears/Nose/Mouth/Thro at: (+) rhinorrhea, (-) nasal congestion Respiratory: (+) cough, (+) shortness of breath, (-) sputum production Musculoskeletal: (+) back pain Endocrine: (+) cold intolerance Objective BP 144/82 Pulse 93 Temp 36.6 ?C (97.9 ?F) Resp 19 Wt 85.4 kg (188 lb 4.4 oz) LMP 12/14/2014 SpO2 97% PAST MEDICAL HISTORY Diagnosis Date - Type I (juvenile type) diabetes mellitus without mention of complication, uncontrolled PAST SURGICAL HISTORY Procedure Laterality Date - PAST SURGICAL HISTORY OF 05/28/98 removal of axillary cyst ALLERGIES Betadine [Povidone-Iodine] MEDICATIONS - albuterol HFA (PROVENTIL HFA, VENTOLIN HFA) 90 mcg/actuation inhaler Inhale 2 puffs as instructed every 6 hours as needed for wheezing/shortness of breath. - albuterol HFA (PROVENTIL HFA, VENTOLIN HFA) 90 mcg/actuation inhaler Inhale 2 Puffs as instructed every 4 hours as needed for wheezing/shortness of breath. - fluticasone (FLONASE) 50 mcg/actuation nasal spray Use 2 Sprays in each nostril once daily. Rinse mouth after use. - insulin aspart (NOVOLOG) 100 unit/mL soln Use as directed in the insulin pump up to 100 units daily0 - lisinopril (ZESTRIL, PRINIVIL) 40 mg tablet Take 1 tablet by mouth once daily. - pravastatin (PRAVACHOL) 20 mg tablet Take 1 tablet by mouth daily at bedtime. - COMPOUNDED PRESCRIPTION by MISCELLANEOUS route. Massotherapy for chronic pain. - blood sugar diagnostic, disc(ASCENSIA BREEZE 2 TEST STRIPS) Check BS 6-8 times daily - predniSONE (DELTASONE) 10 mg tablet Take 4 tablets by mouth once daily for 3 days, THEN 3 tablets once daily for 3 days, THEN 1 tablet once daily for 3 days. - benzonatate (TESSALON PERLES) 100 mg capsule Take 2 capsules by mouth three times daily as needed. (Patient not taking: Reported on 04/11/2019 ) - ASPIRIN 81 MG TAB Take one (1) tablet daily . (Patient not taking: Reported on 01/07/2025) - MULTIVITAMIN TAB Take one(1) tablet daily. (Patient not taking: Reported on 01/07/2025) FAMILY HISTORY Problem Relation Age of Onset - Diabetes Paternal Grandmother - Diabetes Father SOCIAL HISTORY[1] Physical Exam Vitals and nursing note reviewed. Constitutional: General: She is not in acute distress. Appearance: Normal appearance. She is not ill-appearing. HENT: Right Ear: Tympanic membrane, ear canal and external ear normal. Left Ear: Tympanic membrane, ear canal and external ear normal. Mouth/Throat: Mouth: Mucous membranes are moist. Pharynx: Oropharynx is clear. No oropharyngeal exudate or posterior oropharyngeal erythema. Cardiovascular: Rate and Rhythm: Normal rate and regular rhythm. Heart sounds: Normal heart sounds. Pulmonary: Effort: Pulmonary effort is normal. No respiratory distress. Breath sounds: Normal breath sounds. No wheezing or rales. Lymphadenopathy: Cervical: No cervical adenopathy. Skin: General: Skin is warm and dry. Findings: No erythema or rash. Neurological: Mental Status: She is alert. { 1. Subacute cough (R05.2) 2. Viral bronchitis (J20.8) - Persistent cough, postnasal drainage, and shortness of breath for 2 weeks; symptoms not improved with prior doxycycline course or Mucinex DM. - Chest X-ray negative for pneumonia or edema. - Start steroid therapy to decrease airway inflammation and address persistent cough and dyspnea. - Continue albuterol inhaler every 4 hours as needed for shortness of breath. - Educated patient on viral etiology of bronchitis, expected improvement within 24-48 hours after starting s (more content not included)... Normal [facility] XR CHEST 2V FRONTAL/LATon XR CHEST 2V FRONTAL/LAT * * *Final Report* * * DATE OF EXAM: Jan 19 2025 12:44PM WOX [id number] - XR CHEST 2V FRONTAL/LAT / PROCEDURE REASON: Subacute cough * * * * Physician Interpretation * * * * EXAMINATION: CHEST RADIOGRAPH (2 VIEW FRONTAL and LATERAL) CLINICAL HISTORY: Subacute cough MQ: XC2_6 EXAM DATE/TIME: 01/19/2025 12:44 PM COMPARISON: 01/11/2019 RESULT: Lines, tubes, and devices: None. Lungs and pleura: No consolidation. No lung mass. No pleural effusion. No pneumothorax. Cardiomediastinal silhouette: Normal cardiomediastinal silhouette. Bones and soft tissues: Unremarkable. IMPRESSION: No acute radiographic abnormality. [employer] Worker: PSCB Transcribe Date/Time: Jan 19 2025 12:51P Dictated by : DEISY COLE MD This examination was interpreted and the report reviewed and electronically signed by: DEISY COLE MD on Jan 19 2025 12:52PM EST [id number] CN Normal [facility] XR Chest PA and Lateralon IMPRESSION: No acute radiographic abnormality. [employer] Worker: PSCB Transcribe Date/Time: Jan 19 2025 12:51P Dictated by : DEISY COLE MD This examination was interpreted and the report reviewed and electronically signed by: DEISY COLE MD on Jan 19 2025 12:52PM EST DIVISION OF RADIOLOGY * * *Final Report* * * DATE OF EXAM: Jan 19 2025 12:44PM WOX [id number] - XR CHEST 2V FRONTAL/LAT / PROCEDURE REASON: Subacute cough * * * * Physician Interpretation * * * * EXAMINATION: CHEST RADIOGRAPH (2 VIEW FRONTAL & LATERAL) CLINICAL HISTORY: Subacute cough MQ: XC2_6 EXAM DATE/TIME: 01/19/2025 12:44 PM COMPARISON: 01/11/2019 RESULT: Lines, tubes, and devices: None. Lungs and pleura: No consolidation. No lung mass. No pleural effusion. No pneumothorax. Cardiomediastinal silhouette: Normal cardiomediastinal silhouette. Bones and soft tissues: Unremarkable. DIVISION OF RADIOLOGY Provider, [facility] - 01/19/2025 * * *Final Report* * * DATE OF EXAM: Jan 19 2025 12:44PM WOX 5291 - XR CHEST 2V FRONTAL/LAT / PROCEDURE REASON: Subacute cough * * * * Physician Interpretation * * * * EXAMINATION: CHEST RADIOGRAPH (2 VIEW FRONTAL & LATERAL) CLINICAL HISTORY: Subacute cough MQ: XC2_6 EXAM DATE/TIME: 01/19/2025 12:44 PM COMPARISON: 01/11/2019 RESULT: Lines, tubes, and devices: None. Lungs and pleura: No consolidation. No lung mass. No pleural effusion. No pneumothorax. Cardiomediastinal silhouette: Normal cardiomediastinal silhouette. Bones and soft tissues: Unremarkable. IMPRESSION IMPRESSION: No acute radiographic abnormality. [employer] Worker: PSCB Transcribe Date/Time: Jan 19 2025 12:51P Dictated by : DEISY COLE MD This examination was interpreted and the report reviewed and electronically signed by: DEISY COLE MD on Jan 19 2025 12:52PM EST [facility] Radiology Study observation (narrative) [facility] XR Chest PA and LateralOrder ed By: [facility] Provider on 01-19-[address] [facility] ic CNOVon 01-07-2025 CNOV Office Visit ([facility]) RACHEL MONAE ([id number]) 1975 F Date Time Provider Department 01/07/25 5:30 PM PRUDENCIO MOSER During your visit today, we recorded the following information about you: Temperature Pulse Respiration Blood pressure 98.2 degrees 76/minute 18/minute 142/80 Weight 81.8 kg Prudencio Moser APRN.CREDIT COLLECTIONS SPECIALIST 01/07/2025 6:04 PM Signed [facility] Subjective Rachel eLdbetterherford is a 49 year old female. Patient presents with: Cough: Cough, chest congestion and Shortness of Breath x 1 week HPI Nontoxic-appearing 49-year-old female presents urgent care chief complaint sinus pressure chest congestion fatigue. Patient states symptoms started a little over 1 week ago. Has worsened. States feels like it moved to her chest. States history of bronchitis this is similar. OTC medications none that have helped. Denies any fevers. No chest pain or pleuritic pain. No hemoptysis. Does have some shortness of breath with coughing only. Cough is most prominent and bothersome at night. Past medical history prescription medications and allergies reviewed. Review of Systems Constitutional: Negative for chills, diaphoresis, fatigue and fever. HENT: Positive for rhinorrhea, sinus pressure and sinus pain. Negative for congestion, drooling, ear discharge, ear pain, sneezing, sore throat and trouble swallowing. Eyes: Negative for pain, discharge, redness, itching and visual disturbance. Respiratory: Positive for cough. Negative for chest tightness, shortness of breath and wheezing. Cardiovascular: Negative for chest pain. Gastrointestinal: Negative for abdominal distention, abdominal pain, blood in stool, constipation, diarrhea, nausea and vomiting. Genitourinary: Negative for difficulty urinating and dysuria. Musculoskeletal: Negative for arthralgias, joint swelling, neck pain and neck stiffness. Skin: Negative for rash. Neurological: Positive for headaches. Negative for dizziness, weakness and numbness. Objective BP 142/80 Pulse 76 Temp 36.8 ?C (98.2 ?F) (Tympanic) Resp 18 Wt 81.8 kg (180 lb 5.4 oz) LMP 12/14/2014 SpO2 100% Physical Exam Constitutional: Appearance: Normal appearance. HENT: Head: Normocephalic. Jaw: No trismus, tenderness, swelling or pain on movement. Nose: Congestion present. Right Sinus: Maxillary sinus tenderness present. Left Sinus: Maxillary sinus tenderness present. Mouth/Throat: Mouth: Mucous membranes are moist. Pharynx: Oropharynx is clear. Uvula midline. No oropharyngeal exudate or posterior oropharyngeal erythema. Eyes: Conjunctiva/sclera: Conjunctivae normal. Cardiovascular: Rate and Rhythm: Normal rate. Pulmonary: Effort: Pulmonary effort is normal. Breath sounds: Normal breath sounds. No wheezing, rhonchi or rales. Abdominal: Palpations: Abdomen is soft. Tenderness: There is no abdominal tenderness. There is no guarding or rebound. Musculoskeletal: General: Normal range of motion. Cervical back: Normal range of motion and neck supple. No edema, erythema or rigidity. No pain with movement. Normal range of motion. Lymphadenopathy: Cervical: No cervical adenopathy. Skin: General: Skin is warm. Findings: No rash. Neurological: General: No focal deficit present. Mental Status: She is alert and oriented to person, place, and time. Mental status is at baseline. {ASSESSMENT/PLAN: 1. Sinobronchitis - ICD9: 473.9, 490, ICD10: J32.9, J40 Diagnosed with sinobronchitis. Patient states has URI symptoms. History of bronchitis this is similar. Placed on doxycycline Tessalon Perles as needed albuterol as needed. Red flags ER evaluation discussed. Patient was educated on supportive therapies. Patient will follow up with primary care provider as needed. Patient was instructed to immediately proceed to emergency room for any new, worsening, or symptoms lasting longer than anticipated. The patient's clinical presentation is otherwise unremarkable at this time. Based on exam and clinical finding, the patient is stable for discharge. Plan of care was discussed with patient. Patient verbalizes understanding and agrees to plan of care. This note was generated using Streame[employer] software. It may contain errors in wording, punctuation, or spelling. Prudencio Moser APRN.CREDIT COLLECTIONS SPECIALIST History and Record Review Clinical information obtained from an independent historian. History obtained from or confirmed by: parent. External record(s) reviewed: prior outpatient record. Disposition The patient was discharged. OTC Medications were advised: Procedures Allergies As of Date: 01/07/2025 Noted Allergy Reaction BETADINE (POVIDONE-IODINE) 03/07/2005 Comments: itchy at site Date Reviewed: 01/07/2025 Reviewed by: Prudencio Moser APRN.CREDIT COLLECTIONS SPECIALIST - Fully Assessed Reason for Visit: Cough [28] Cmt: Cough, chest conge (more content not included)... Normal [facility] Shoulder min 2 Viewson 12-02 Shoulder min 2 Views [facility] [address] [place] [address] Shoulder min 2 Views MR#: [id number] Acct: [id number] Name: RACHEL MONAE Rep #: [id number] : 1975 F 49 From: Rocky Guajardo PCP: Dr. Cindy Weber, DO Status: REG CLI Study: Shoulder min 2 Views Date of Exam: 12/02/24 Exam# [id number] Ordering Dr: Suzi Kay CONSULTING HR PROFESSIONAL-Christina PROCEDURE: SHOULDER MIN 2 VIEWS 12/02/2024 REASON FOR EXAM: CONCERN FOR FRACTURE TECHNIQUE: SHOULDER MIN 2 VIEWS COMPARISON: None RAD/Shoulder min 2 Views IMPRESSION: No acute fracture or dislocations. Mild degenerative changes of the left shoulder. No acute soft tissue abnormalities. No radiographic foreign body. Reading Location: [id number] CC: CONSULTING HR PROFESSIONAL-C Suzi Kay; Dr. Cindy Weber DO [employer] Worker: Signed Normal [facility]-2017 Alanine aminotransferase (ALT) 16 U/L Invalid Interpretation Code 12-78 [facility] Work Phone: Albumin 3.5 g/dL Invalid Interpretation Code 3.4-5.0 [facility] Work Phone: Albumin/Globulin Ratio 1 {ratio} Invalid Interpretation Code 0.9-2.4 [facility] Work Phone: Alkaline phosphatase (ALP) 68 U/L Invalid Interpretation Code 45-117 [facility] Work Phone: Anion gap 7 mmol/L Invalid Interpretation Code 5-15 [facility] Work Phone: Aspartate aminotransferase (AST) 12 U/L Low 15-37 [facility] Work Phone: Bilirubin (total) 0.40 mg/dL Invalid Interpretation Code 0.20-1.00 [facility] Work Phone: BUN/Creatinine Ratio 15.2 RATIO Invalid Interpretation Code 10-20 [facility] Work Phone: Calcium 8.5 mg/dL Invalid Interpretation Code 8.5-10.1 [facility] Work Phone: Chloride 108 mmol/L High 98-107 [facility] Work Phone: CO2 25.0 mmol/L Invalid Interpretation Code 21.0-32.0 [facility] Work Phone: eGFR (non-black) 86 mL/min/{1.73_m2} Invalid Interpretation Code >60 [facility] Work Phone: eGFR (non-black) 71 mL/min/{1.73_m2} Invalid Interpretation Code >60 [facility] Work Phone: Globulin 3.6 g/dL High 2.3-3.5 [facility] Work Phone: Potassium 3.8 mmol/L Invalid Interpretation Code 3.5-5.1 [facility] Work Phone: Protein 7.1 g/dL Invalid Interpretation Code 6.4-8.2 [facility] Work Phone: Sodium 140 mmol/L Invalid Interpretation Code 136-145 [facility] Work Phone: Creatinine 0.92 mg/dL Invalid Interpretation Code 0.55-1.02 [facility] Work Phone: Glucose 73 mg/dL Invalid Interpretation Code 70-110 [facility] Work Phone: Urea nitrogen 14 mg/dL Invalid Interpretation Code 7-18 [facility] Work Phone: Lab Report: Hemoglobin A1con 01-01-2017 HbA1c 8.4 % High 4.2-6.3 [facility] Work Phone: Lab Report: Lipid Profileon 01-01-2017 Cholesterol 182 mg/dL Invalid Interpretation Code 200 [facility] Work Phone: HDL Cholesterol 80 mg/dL Invalid Interpretation Code [facility] Work Phone: LDL Cholesterol 95 mg/dL Invalid Interpretation Code 0-130 [facility] Work Phone: Triglyceride 35 mg/dL Invalid Interpretation Code [facility] Work Phone: very low density lipoproteins 7 mg/dL Invalid Interpretation Code 5-40 [facility] Work Phone: Lab Report: Microalb:Creat R atio,Random URon 01-01-2017 ACR (microalbumin/creati nine) ratio 9.6 MG/G CRE Invalid Interpretation Code <30 mg/g CRE [facility] Work Phone: Urine, creatinine 60.80 mg/dL Invalid Interpretation Code NO RANGE EST. [facility] Work Phone: Urine, microalbumin 0.58 mg/dL Invalid Interpretation Code Units converted. See lab report for original value. [facility] Work Phone: Office Visiton 12-12-2016 Adolescent depression screening assessment Adolescent depression screening assessment Invalid Interpretation Code [facility] Work Phone: Adult depression screening assessment Adult depression screening assessment Invalid Interpretation Code [facility] [facility] Work Phone: Documentation of current medications (procedure) Done Invalid Interpretation Code [facility] Work Phone: PHQ-9 quick depression assessment panel [Reported.PHQ] Adult depression screening assessment [employer] [facility] Work Phone: Protein mass conc Done [facility] Work Phone: Office Visit: URIon 06-16-19 16 Tobacco smoking status NHIS Never smoker [employer] [facility] Work Phone: Tobacco use CPHS Never smoker Invalid Interpretation Code [facility] Work Phone: Lab Report: CBC, Employeeon 01-11-2015 Absolute Neut 5.0 X10 3/UL 2.0-7.7 [facility] Work Phone: Absolute Neutrophil count 5.0 X10 3/UL Invalid Interpretation Code 2.0-7.7 [employer] [facility] Work Phone: Basophils/100 leukocytes 0.6 % Invalid Interpretation Code 0-1 [facility] Work Phone: Basophils/100 WBC (Bld) 0.6 % 0-1 [facility] Work Phone: Eosinophils/100 leukocytes 1.7 % Invalid Interpretation Code 0-5 [facility] Work Phone: Eosinophils/100 WBC (Bld) 1.7 % 0-5 [facility] Work Phone: Erythrocyte distribution width Ratio (RBC) 37.6 fL 35.1-43.9 [facility] Work Phone: Erythrocyte distribution width Ratio (RBC) 12.0 % 11.6-14.6 [employer] [facility] Work Phone: Erythrocytes (RBC) 4.68 10*6/uL Invalid Interpretation Code 4.2-5.4 [facility] Work Phone: Hematocrit (HCT) 40.4 % Invalid Interpretation Code 37-47 [facility] Work Phone: Hematocrit Volume Fraction (Bld) 40.4 % 37-47 [facility] Work Phone: Hemoglobin (HGB) 13.9 g/dL Invalid Interpretation Code 12.0-15.0 [facility] Work Phone: Lymphocytes 2.14 X10 3/UL Invalid Interpretation Code 0.83-4.51 [facility] Work Phone: Lymphocytes #/vol (Bld) 2.14 X10 3/UL 0.83-4.51 [facility] Work Phone: Lymphocytes/100 leukocytes 27.3 % Invalid Interpretation Code 19-41 [facility] Work Phone: Lymphocytes/100 WBC (Bld) 27.3 % 19-41 [facility] Work Phone: MCH 29.7 pg Invalid Interpretation Code 27.0-32.0 [facility] Work Phone: MCH Entitic mass (RBC) 29.7 pg 27.0-32.0 [facility] Work Phone: MCHC 34.4 G/GL Invalid Interpretation Code 32-36 [facility] Work Phone: MCHC mass conc (RBC) 34.4 G/GL 32-[address] [facility] Work Phone: MCV 86.3 fL Invalid Interpretation Code 81-99 [facility] Work Phone: MCV Entitic volume (RBC) 86.3 fL 81-99 [facility] Work Phone: Monocytes/100 leukocytes 7.0 % Invalid Interpretation Code 0-10 [facility] Work Phone: Monocytes/100 WBC (Bld) 7.0 % 0-10 [facility] Work Phone: Neutrophils/100 leukocytes 63.3 % Invalid Interpretation Code 47-70 [facility] Work Phone: Neutrophils/100 WBC (Bld) 63.3 % 47-70 [facility] Work Phone: Platelet mean volume Entitic volume (Bld) 9.2 fL 6.2-12.0 [facility] Work Phone: Platelets 271 10*3/mm3 Invalid Interpretation Code 150-450 [facility] Work Phone: Platelets #/vol (Bld) 271 10*3/mm3 150-450 [facility] Work Phone: PMV by Marina 9.2 fL Invalid Interpretation Code 6.2-12.0 [facility] [facility] Work Phone: RBC #/vol (Bld) 4.68 10*6/uL 4.2-5.4 [facility] Work Phone: RDW-CA 12.0 % Invalid Interpretation Code 11.6-14.6 [facility] Work Phone: red blood cell distribution width, size density 37.6 fL Invalid Interpretation Code 35.1-43.9 [facility] Work Phone: WBC #/vol (Bld) 7.8 10*3/uL 4.4-11.0 [facility] Work Phone: WBC (Leukocytes) 7.8 10*3/uL Invalid Interpretation Code 4.4-11.0 [facility] Work Phone: Lab Report: Employee Profile on 01-11-2015 Alanine aminotransferase (ALT) 24 U/L 12-78 [facility] Work Phone: Albumin 4.0 g/dL 3.4-5.0 [facility] Work Phone: Albumin/Globulin Ratio 1.1 {ratio} 0.9-2.4 [facility] Work Phone: Alkaline phosphatase (ALP) 78 U/L Invalid Interpretation Code 50-136 [facility] Work Phone: ALP enzyme act/vol (Bld) 78 U/L 50-136 [facility] Work Phone: Anion gap 7 mmol/L Invalid Interpretation Code 5-15 [facility] Work Phone: Anion gap molar conc 7 mmol/L 5-15 [facility] Work Phone: Aspartate aminotransferase (AST) 22 U/L 15-37 [facility] Work Phone: Bilirubin (direct) 0.14 mg/dL Invalid Interpretation Code 0.00-0.30 [facility] Work Phone: Bilirubin (total) 0.50 mg/dL 0.20-1.00 [facility] Work Phone: BUN/Creatinine Ratio 14.0 RATIO 10-20 [facility] Work Phone: Calcium 9.0 mg/dL 8.5-10.1 [facility] Work Phone: Chloride 103 mmol/L 98-107 [facility] Work Phone: Cholesterol 160 mg/dL 200 [facility] Work Phone: CO2 27.0 mmol/L Invalid Interpretation Code 21.0-32.0 [facility] Work Phone: CO2 ppres (BldV) 27.0 mmol/L 21.0-32.0 [facility] Work Phone: Creatinine 0.93 mg/dL 0.55-1.20 [facility] Work Phone: eGFR (non-black) 71 mL/min/{1.73_m2} >60 [facility] Work Phone: eGFR (non-black) 86 mL/min/{1.73_m2} Invalid Interpretation Code >60 [facility] Work Phone: EST GFR - AA 86 mL/min >60 [facility] Work Phone: GE use only - for LinkLogic import when terms are not otherwise specified 74 mg/dL Invalid Interpretation Code [facility] Work Phone: Globulin 3.7 g/dL High 2.3-3.5 [facility] Work Phone: Globulin mass conc (S) 3.7 g/dL High 2.3-3.5 [facility] Work Phone: Glucose 97 mg/dL Invalid Interpretation Code 70-110 [facility] Work Phone: Glucose mass conc 97 mg/dL 70-110 [facility] Work Phone: HDL Cholesterol 74 mg/dL [facility] Work Phone: HDLEMP 74 mg/dL [facility] Work Phone: Lactate dehydrogenase (LDH) 230 U/L Invalid Interpretation Code 84-246 [facility] Work Phone: LDL Cholesterol 78 mg/dL 0-130 [facility] Work Phone: PHOS 3.0 mg/dL 2.5-4.9 [facility] Work Phone: Phosphorus Concentratation-[place] om 3.0 mg/dL Invalid Interpretation Code 2.5-4.9 [facility] Work Phone: Potassium 4.1 mmol/L 3.5-5.1 [facility] Work Phone: Protein 7.7 g/dL 6.4-8.2 [facility] Work Phone: Sodium 137 mmol/L 136-145 [facility] Work Phone: Triglyceride 40 mg/dL [facility] Work Phone: Urate 1.6 mg/dL Low 2.6-6.0 [facility] Work Phone: Urea nitrogen 13 mg/dL 7-18 [facility] Work Phone: very low density lipoproteins 8 mg/dL 5-40 [facility] Work Phone: Lab Report: Hemoglobin A1con 01-11-2015 HbA1c 8.1 % High 4.2-6.3 [facility] Work Phone: Lab Report: Microalb:Creat R atio,Random URon 01-11-2015 ACR (microalbumin/creati nine) ratio 11.0 MG/G CRE Invalid Interpretation Code <30 mg/g CRE [facility] Work Phone: Albumin/Creatinine DL <= 20 mg/L Ratio (U) 11.0 MG/G CRE <30 mg/g CRE [facility] Work Phone: Urine, creatinine 63.80 mg/dL NO RANGE EST. [facility] Work Phone: Urine, microalbumin 0.74 mg/dL Units converted. See lab report for original value. [facility] Work Phone: Lab Report: Urinalysis, Ash sorto 01-11-2015 Albumin Ql (U) Negative Negative [facility] Work Phone: Bilirubin Ql (U) Negative Negative [facility] Work Phone: Ketones mass conc (U) Negative Negative [facility] Work Phone: Nitrite Urine Negative Invalid Interpretation Code Negative [facility] Work Phone: Occult Blood, urine Negative Invalid Interpretation Code Negative [facility] Work Phone: OCCULT BLOOD-UR Negative Negative [facility] Work Phone: pH (U) 7.0 [pH] 5.0 - 8.0 [facility] Work Phone: specific gravity, urine 1.005 Invalid Interpretation Code 1.002-1.030 [facility] Work Phone: Urine, bilirubin presence Negative Invalid Interpretation Code Negative [facility] Work Phone: Urine, clarity Sl. Cloudy Invalid Interpretation Code Clear [facility] Work Phone: Urine, color Yellow Invalid Interpretation Code Yellow [facility] Work Phone: Urine, glucose presence 250 mg/dL High Normal [facility] Work Phone: Urine, ketones presence Negative Invalid Interpretation Code Negative [facility] Work Phone: Urine, leukocyte esterase presence 25 High Negative [facility] Work Phone: Urine, pH 7.0 [pH] Invalid Interpretation Code 5.0 - 8.0 [facility] Work Phone: Urine, protein Negative Invalid Interpretation Code Negative [facility] Work Phone: urobilinogen, urine, by dipstick Normal mg/dl Invalid Interpretation Code Normal [facility] Work Phone: Lab Report: Bedside Glucoseo n 10-23-2014 Glucose 197 mg/dL High 70-110 [facility] Work Phone: Glucose mass conc 197 mg/dL High 70-110 [facility] Work Phone: Office Visiton 12-10-2013 Tobacco smoking status NHIS Never Invalid Interpretation Code [facility] Work Phone: Lab Report: FTAon 03-29-2011 Treponema pallidum Ab [Units/volume] in Serum Non Reactive Normal Non Reactive [facility] Work Phone: Lab Report: SEDon 03-23-2011 Erythrocyte sedimentation rate 9 mm/h Normal 0-20 [facility] Work Phone: Vital Signs Date Time Vital Sign Value Performing Clinician Facility 01-19-2025 12:18-0400 Body temperature 97.9 [degF] Gwendolyn Praisler-Wood ENTERTAINMENT PRODUCTION PROFESSIONAL.CREDIT COLLECTIONS SPECIALIST Work Phone: [facility] 01-19-2025 12:18-0400 Body weight 85.4 kg Gwendolyn Praisler-Wood ENTERTAINMENT PRODUCTION PROFESSIONAL.CREDIT COLLECTIONS SPECIALIST Work Phone: [facility] 01-19-2025 12:18-0400 Diastolic blood pressure 82 mm[Hg] Gwendolyn Praisler-Wood ENTERTAINMENT PRODUCTION PROFESSIONAL.CREDIT COLLECTIONS SPECIALIST Work Phone: [facility] 01-19-2025 12:18-0400 Heart rate 93 /min Gwendolyn Praisler-Wood ENTERTAINMENT PRODUCTION PROFESSIONAL.CREDIT COLLECTIONS SPECIALIST Work Phone: [facility] 01-19-2025 12:18-0400 Respiratory rate 19 /min Gwendolyn Praisler-Wood ENTERTAINMENT PRODUCTION PROFESSIONAL.CREDIT COLLECTIONS SPECIALIST Work Phone: [facility] 01-19-2025 12:18-0400 SaO2% (BldA) [Mass fraction] 97 % Gwendolyn Praisler-Wood ENTERTAINMENT PRODUCTION PROFESSIONAL.CREDIT COLLECTIONS SPECIALIST Work Phone: [facility] 01-19-2025 12:18-0400 Systolic blood pressure 144 mm[Hg] Gwendolyn HamiltonJairo ENTERTAINMENT PRODUCTION PROFESSIONAL.CREDIT COLLECTIONS SPECIALIST Work Phone: [facility] 01-07-2025 17:20-0400 Body temperature 98.2 [degF] [facility] ENTERTAINMENT PRODUCTION PROFESSIONAL.CREDIT COLLECTIONS SPECIALIST Work Phone: [facility] 01-07-2025 17:20-0400 Body weight 81.8 kg [facility] ENTERTAINMENT PRODUCTION PROFESSIONAL.CREDIT COLLECTIONS SPECIALIST Work Phone: [facility] 01-07-2025 17:20-0400 Diastolic blood pressure 80 mm[Hg] [facility] ENTERTAINMENT PRODUCTION PROFESSIONAL.CREDIT COLLECTIONS SPECIALIST Work Phone: [facility] 01-07-2025 17:20-0400 Heart rate 76 /min [facility] ENTERTAINMENT PRODUCTION PROFESSIONAL.CREDIT COLLECTIONS SPECIALIST Work Phone: [facility] 01-07-2025 17:20-0400 Respiratory rate 18 /min [facility] ENTERTAINMENT PRODUCTION PROFESSIONAL.CREDIT COLLECTIONS SPECIALIST Work Phone: [facility] 01-07-2025 17:20-0400 SaO2% (BldA) [Mass fraction] 100 % [facility] ENTERTAINMENT PRODUCTION PROFESSIONAL.CREDIT COLLECTIONS SPECIALIST Work Phone: [facility] 01-07-2025 17:20-0400 Systolic blood pressure 142 mm[Hg] [facility] ENTERTAINMENT PRODUCTION PROFESSIONAL.CREDIT COLLECTIONS SPECIALIST Work Phone: [facility] 12-12-2016 07:36-0400 BMI (Body Mass Index) 31.48 kg/m2 Valeria Sanabria NP [facility] Work Phone: 12-12-2016 07:36-0400 Body Temperature 97.5 [degF] [facility] Work Phone: 12-12-2016 07:36-0400 BP Diastolic 84 mm[Hg] Valeria Sanabria NP [facility] Work Phone: 12-12-2016 07:36-0400 BP Systolic 132 mm[Hg] Valeria Sanabria NP [facility] Work Phone: 12-12-2016 07:36-0400 Height 165.1 cm Valeria Sanabria CONSULTING HR PROFESSIONAL [facility] Work Phone: 12-12-2016 07:36-0400 Pulse (Heart Rate) 69 /min Valeria Sanabria CONSULTING HR PROFESSIONAL [facility] Work Phone: 12-12-2016 07:36-0400 Respiratory Rate 18 /min Valeria Sanabria CONSULTING HR PROFESSIONAL [facility] Work Phone: 12-12-2016 07:36-0400 Weight 85.82 kg Valeria Sanabria CONSULTING HR PROFESSIONAL [facility] Work Phone: 06-16-2015 08:49-0500 BSA (Body Surface Area) 1.9 m2 Valeria Sanabria CONSULTING HR PROFESSIONAL [facility] Work Phone: Encounters Encounter Date Encounter Type Care Provider Facility Start: 01-19-2025 End: 01-19-2025 Subsequent hospital visit by physician [facility] Work Phone: Radiology Comment on above: Subacute cough [R05. 2] Start: 01-19-2025 End: 01-19-2025 Patient encounter procedure Gwendolyn Mccall APRN.CREDIT COLLECTIONS SPECIALIST Work Phone: [facility] Comment on above: Subacute cough (Prim rosenda Dx); Viral bronchitis Start: 01-19-2025 End: 01-19-2025 ambulatory CINDY WEBER Facility:[facility] Start: 01-07-2025 End: 01-07-2025 Office outpatient visit 25 minutes Prudencio Moser APRN.CREDIT COLLECTIONS SPECIALIST Work Phone: [facility] Comment on above: Sinobronchitis (Prim rosenda Dx) Start: 01-07-2025 End: 01-07-2025 ambulatory CINDY WEBER Facility:[facility] Start: 12-02-2024 End: 12-02-[address] Cindy Weber DO Work Phone: -Radiology [facility] Start: 12-02-2024 End: 12-02-2024 Patient encounter procedure Suzi Kay CONSULTING HR PROFESSIONAL-C -Radiology [facility] Work Phone: Start: 12-02-2024 End: 12-02-2024 ambulatory Cindy Weber Facility:[facility] Start: 09-12-2023 End: 09-12-2023 ambulatory [facility] Work Phone: Start: 09-12-2023 End: 09-12-2023 Patient encounter procedure [facility] Work Phone: Procedures Date Procedure Procedure Detail Performing Clinician Start: 01-19-2025 Radiologic exam ches t 2 views Gwendolyn Mccall ENTERTAINMENT PRODUCTION PROFESSIONAL.CREDIT COLLECTIONS SPECIALIST Work Phone: Start: 12-02-2024 Plain X-ray of shoulder Dr. Cindy Weber DO Work Phone: Start: 09-12-2023 Screening mammography Start: 12-06-2016 End: 01-01-2017 *CMP Complete Metabolic Panel Valeria Sanabria NP Work Phone: Start: 12-06-2016 End: 01-01-2017 *Microalbumin, Creatine Ratio, rand urine Valeria Sanabria NP Work Phone: Start: 12-06-2016 End: 01-01-2017 HbA1c Valeria Sanabria NP Work Phone: Start: 12-06-2016 End: 01-01-2017 Lipid panel [AGGREGATE] Valeria Sanabria N P Work Phone: Start: 01-11-2015 End: 01-11-2015 Urinalysis Valeria Sanabria NP Start: 02-17-2013 End: 11-21-2013 Urinalysis complete panel - Urine Yi Montes MD Start: 02-04-2013 End: 02-04-2014 Orthopedic Referral Yi Montes MD Start: 07-12-2012 End: 07-12-2013 Ophthalmology Referral Yi Montes MD Start: 12-18-2011 General examination of patient HEALTH MAINTENANCE EXAM Valeria Sanabria NP Start: 06-14-2011 End: 06-14-2012 Endocrinology Referral Yi Montes MD Start: 03-20-2011 End: 03-22-2011 Follow Up Appt 1 year Yi Montes MD Start: 03-20-2011 General examination of patient HEALTH MAINTENANCE EXAM Valeria Sanabria MARCELINA Start: 03-06-2011 End: 03-06-2012 Ophthalmology Referral Yi Montes MD Start: 02-16-2011 End: 02-16-2011 Follow Up Appt 1 month Yi Montes MD Start: 01-16-2011 End: 01-16-2011 Follow Up Appt 1 month Yi Montes MD H/O: surgery H/O hand surgery Comment on above: trigger finger with bilateral hands History of decompres wilfred of median nerve History of carpal tunnel release Comment on above: right hand Plan of Treatment Date Care Activity Detail Author Start: 01-26-2025 [facility] Start: 08-28-2020 Screening for malignant neoplasm of colon [facility] Start: 02-08-2017 Hepatitis B screening Urine Albumin:Creatinine Ratio [facility] Start: 02-08-2017 Hepatitis B surface antibody level LDL Cholesterol [facility] Start: 12-12-2016 End: 12-22-2016 *CMP Complete Metabolic Panel *CMP Complete Metabolic Panel [facility] Work Phone: Start: 12-12-2016 End: 12-22-2016 *Microalbumin, Creatine Ratio, rand urine *Microalbumin, Creatine Ratio, rand urine [facility] Work Phone: Start: 12-12-2016 End: 12-22-2016 HbA1c *HgA1C [facility] Work Phone: Start: 12-12-2016 End: 12-22-2016 Lipid panel [AGGREGATE] *Lipid Profile [facility] Work Phone: Start: 12-06-2016 End: 01-01-2017 *CMP Complete Metabolic Panel *CMP Complete Metabolic Panel [facility] Work Phone: Start: 12-06-2016 End: 01-01-2017 *Microalbumin, Creatine Ratio, rand urine *Microalbumin, Creatine Ratio, rand urine [facility] Work Phone: Start: 12-06-2016 End: 01-01-2017 HbA1c *HgA1C [facility] Work Phone: Start: 12-06-2016 End: 01-01-2017 Lipid panel [AGGREGATE] *Lipid Profile [facility] Work Phone: Start: 08-08-2016 Hemoglobin A1c measurement HbA1C [facility] Start: 2015 Screening for malignant neoplasm of breast Mammogram Screening [facility] Start: 07-26-2015 End: 07-28-2015 Chest x-ray X-Ray, Chest, PA & Lateral [facility] Work Phone: Start: 07-26-2015 End: 07-28-2015 Pulmonary Function Test - complete Pulmonary Function Test - complete [facility] Work Phone: Start: 07-12-2014 Glaucoma screening Dilated Retinal Exam [facility] Start: 06-27-2014 Diabetic foot examination Diabetic Foot Exam [facility] Start: 02-17-2013 End: 11-21-2013 Urinalysis complete panel - Urine *UAC- Urinalysis, Complete w/ Micro [facility] Work Phone: Start: 02-04-2013 End: 02-04-2013 Orthopedic Referral Orthopedic Referral Dimas Lopez, [address], [address], [place], [address] [facility] Work Phone: Start: 07-12-2012 End: 02-04-2013 Ophthalmology Referral Ophthalmology Referral [facility] Work Phone: Start: 06-14-2011 End: 07-27-2011 Endocrinology Referral Endocrinology Referral Torey Figueroa, [facility], [address] [place], [address] [facility] Work Phone: Start: 03-20-2011 End: 03-22-2011 Follow Up Appt 1 year Follow Up Appt 1 year [facility] Work Phone: Start: 03-06-2011 End: 03-23-2011 Ophthalmology Referral Ophthalmology Referral Alexi Garcia, [address], [place], [address] [facility] Work Phone: Start: 02-16-2011 End: 02-16-2011 Follow Up Appt 1 month Follow Up Appt 1 month [facility] Work Phone: Start: 01-16-2011 End: 01-16-2011 Follow Up Appt 1 month Follow Up Appt 1 month [facility] Work Phone: Start: 08-28-1996 Screening for malignant neoplasm of cervix Cervical Cancer Screening [facility] Start: 08-28-1994 Hepatitis B Vaccine (1 of 3 - 19+ 3-dose series) Hepatitis B Vaccine (1 of 3 - 19+ 3-dose series) [facility] Start: 08-28-1994 Pneumococcal vaccination Pneumococcal Vaccine (1 of 2 - PCV) [facility] Start: 08-28-1994 Urine microalbumin profile DTaP,Tdap,Td Vaccine (1 - Tdap) [facility] Start: 08-28-1993 Annual PCP Team Chronic Disease Visit Annual PCP Team Chronic Disease Visit [facility] Start: 08-28-1993 Anxiety Screening Anxiety Screening [facility] Start: 08-28-1993 Depression Screening Depression Screening [facility] Start: 08-28-1993 Hepatitis C screening Hepatitis C Screening [facility] Start: 08-28-1993 HIV screening HIV Screening [facility] Patient Education Medications [facility] Work Phone: Immunizations Immunization Date Immunization Notes Care Provider Sallie butts 03-03-2022 influenza virus vaccine, unspecified formulation Prudencio Moser APRN.CREDIT COLLECTIONS SPECIALIST Work Phone: [facility] 02-21-2017 influenza, injectabl e, quadrivalent, preservative free [facility] 02-24-2016 influenza, injectabl e, quadrivalent, preservative free [facility] 02-25-2015 influenza, injectabl e, quadrivalent, preservative free [facility] 02-25-2014 influenza, injectabl e, quadrivalent, preservative free [facility] 03-27-2013 Influenza virus vaccine [facility] 02-25-2010 influenza virus vaccine, unspecified formulation Prudencio Moser ENTERTAINMENT PRODUCTION PROFESSIONAL.CREDIT COLLECTIONS SPECIALIST Work Phone: [facility] Payers Date Payer Category Payer Self-pay [id number] 2021 [employer] Blue [employer] BLUE ACCE SS PPO [id number] 2018 Private Health Insurance [facility] [employer] PLUS [id number] 2018 Private Health Insurance [id number] 2016 [id number] 2006 [id number] Unknown [id number] Social History Date Type Detail Facility Start: 09-19-2021 Tobacco smoking stat us VTIS Unknown if ever smoked [facility] Start: 05-22-2019 With Family [facility] Gibbs [facility] Start: 1975 Sex Assigned At Female W [facility] Start: 06-14-2011 End: 09-19-2021 Tobacco smoking status NHIS Never smoked tobacco (finding) [facility] Start: 06-14-2011 Tobacco use and exposure Smokeless tobacco non-user [facility] Start: 01-07-2025 Alcoholic beverage intake Current non-drinker of alcohol (finding) [facility] Start: 05-05-2020 End: 01-07-2025 History of Social function [facility] Start: 05-05-2020 End: 01-07-2025 Tobacco use panel [facility] Work Phone: Start: 04-28-2012 National Score (1-10 0), lower number is lower risk Not on file [facility] Start: 1975 Sex assigned at Not on file C [facility] Medical Equipment Procedure Code Equipment Code Equipment Origin al Text Equipment Identifier Dates Check BS 6-8 thuan es daily [id number] Start: 12-12-2007 Functional Status Date Assessment Result Facility 02-23-2014 Are you deaf, or do you have serious difficulty hearing No 02/23/2014 7:57 AM Barbie Dean LPN No [facility] 02-23-2014 Are you blind, or do you have serious difficulty seeing, even when wearing glasses No 02/23/2014 7:57 AM Barbie Dean LPN No [facility] 02-23-2014 Do you have serious difficulty walking or climbing stairs No 02/23/2014 7:57 AM aBrbie Dean LPN No [facility] 02-23-2014 Do you have difficul ty dressing or bathing No 02/23/2014 7:57 AM EDT Barbie Zamudio LPN No [facility] 02-23-2014 Because of a physica l, mental, or emotional condition, do you have difficulty doing errands alone such as visiting a physician's office or shopping No 02/23/2014 7:57 AM EDT Barbie Zamudio LPN No [facility] Mental Status Date Assessment Result Facility 02-23-2014 Because of a physica l, mental, or emotional condition, do you have serious difficulty concentrating, remembering, or making decisions No 02/23/2014 7:57 AM EDT Barbie Zamudio LPN No [facility] Clinical Notes 12-02-2024 to 01-19-2025 Patient InstructionsGwendolyn Mccall APRN.CREDIT COLLECTIONS SPECIALIST - 01/19/2025 1:12 PM Dolores Krishna RT(R) - 01/19/2025 12:40 PM Prudencio Rubin APRN.CREDIT COLLECTIONS SPECIALIST - 01/07/2025 5:47 PM EDT Note Date & Type Note Facility 01-19-2025 Instructions Gwendolyn Mccall APRN.CREDIT COLLECTIONS SPECIALIST - 01/19/2025 1:13 PM EDT 1. Subacute cough (R05.2) 2. Viral bronchitis (J20.8) - Persistent cough, postnasal drainage, and shortness of breath for 2 weeks; symptoms not improved with prior doxycycline course or Mucinex DM. - Chest X-ray negative for pneumonia or edema. - Start steroid therapy to decrease airway inflammation and address persistent cough and dyspnea. - Continue albuterol inhaler every 4 hours as needed for shortness of breath. - Educated patient on viral etiology of bronchitis, expected improvement within 24-48 hours after starting steroids, and rationale for steroid use. - Provided work note as requested. - Start the oral steroid prescribed today as directed to reduce lung inflammation; you should notice less coughing, pain, and shortness of breath within 24-48 hours. - Continue using your albuterol inhaler every 4 hours as needed to help you breathe. - Take your cough medicine (Tessalon Perles or Robitussin) as needed for cough relief. - Today s chest x-ray showed no pneumonia or fluid buildup, so there is no evidence of more serious lung issues. documented in this encounter [facility] 01-19-2025 Note HNO ID: [id number] Author: GWENDOLYN MCCALL APRN.MAYA Service: ? Author Type: Nurse Practitioner Type: Progress Notes Filed: 01/19/2025 13:13 Note Text: [facility] Subjective Rachel Monae is a 49 year old female. Patient presents with: Cough: Chest congestion, sob x 2 weeks Cough Cough and Congestion: - Cough and congestion x2 weeks. - Using Mucinex DM without relief; reports feeling like there's something in my chest that I need to cough out. - Previously prescribed Tessalon Perles, but has been taking Repetussin instead. - Denies fever, chills, or sweating. - Reports significant post-nasal drainage, but denies nasal congestion. - Cough worsens when trying to sleep. - Took doxycycline as prescribed for sinobronchitis on 01/07/25-no improvement. Dyspnea: - Dyspnea x2 weeks. - Using albuterol inhaler Q4H for relief. Back Pain: - Localized back pain, exacerbated by standing up and bending down. Review of Systems Respiratory: Positive for cough. Constitutional: (+) sleep disturbance, (-) fever, (-) chills, (-) diaphoresis Ears/Nose/Mouth/Throat: (+) rhinorrhea, (-) nasal congestion Respiratory: (+) cough, (+) shortness of breath, (-) sputum production Musculoskeletal: (+) back pain Endocrine: (+) cold intolerance Objective BP 144/82 Pulse 93 Temp 36.6 ?C (97.9 ?F) Resp 19 Wt 85.4 kg (188 lb 4.4 oz) LMP 12/14/2014 SpO2 97% PAST MEDICAL HISTORY Diagnosis Date - Type I (juvenile type) diabetes mellitus without mention of complication, uncontrolled PAST SURGICAL HISTORY Procedure Laterality Date - PAST SURGICAL HISTORY OF 05/28/98 removal of axillary cyst ALLERGIES Betadine [Povidone-Iodine] MEDICATIONS - albuterol HFA (PROVENTIL HFA, VENTOLIN HFA) 90 mcg/actuation inhaler Inhale 2 puffs as instructed every 6 hours as needed for wheezing/shortness of breath. - albuterol HFA (PROVENTIL HFA, VENTOLIN HFA) 90 mcg/actuation inhaler Inhale 2 Puffs as instructed every 4 hours as needed for wheezing/shortness of breath. - fluticasone (FLONASE) 50 mcg/actuation nasal spray Use 2 Sprays in each nostril once daily. Rinse mouth after use. - insulin aspart (NOVOLOG) 100 unit/mL soln Use as directed in the insulin pump up to 100 units daily0 - lisinopril (ZESTRIL, PRINIVIL) 40 mg tablet Take 1 tablet by mouth once daily. - pravastatin (PRAVACHOL) 20 mg tablet Take 1 tablet by mouth daily at bedtime. - COMPOUNDED PRESCRIPTION by MISCELLANEOUS route. Massotherapy for chronic pain. - blood sugar diagnostic, disc(ASCENSIA BREEZE 2 TEST STRIPS) Check BS 6-8 times daily - predniSONE (DELTASONE) 10 mg tablet Take 4 tablets by mouth once daily for 3 days, THEN 3 tablets once daily for 3 days, THEN 1 tablet once daily for 3 days. - benzonatate (TESSALON PERLES) 100 mg capsule Take 2 capsules by mouth three times daily as needed. (Patient not taking: Reported on 04/11/2019 ) - ASPIRIN 81 MG TAB Take one (1) tablet daily . (Patient not taking: Reported on 01/07/2025) - MULTIVITAMIN TAB Take one(1) tablet daily. (Patient not taking: Reported on 01/07/2025) FAMILY HISTORY Problem Relation Age of Onset - Diabetes Paternal Grandmother - Diabetes Father SOCIAL HISTORY[1] Physical Exam Vitals and nursing note reviewed. Constitutional: General: She is not in acute distress. Appearance: Normal appearance. She is not ill-appearing. HENT: Right Ear: Tympanic membrane, ear canal and external ear normal. Left Ear: Tympanic membrane, ear canal and external ear normal. Mouth/Throat: Mouth: Mucous membranes are moist. Pharynx: Oropharynx is clear. No oropharyngeal exudate or posterior oropharyngeal erythema. Cardiovascular: Rate and Rhythm: Normal rate and regular rhythm. Heart sounds: Normal heart sounds. Pulmonary: Effort: Pulmonary effort is normal. No respiratory distress. Breath sounds: Normal breath sounds. No wheezing or rales. Lymphadenopathy: Cervical: No cervical adenopathy. Skin: General: Skin is warm and dry. Findings: No erythema or rash. Neurological: Mental Status: She is alert. { 1. Subacute cough (R05.2) 2. Viral bronchitis (J20.8) - Persistent cough, postnasal drainage, and shortness of breath for 2 weeks; symptoms not improved with prior doxycycline course or Mucinex DM. - Chest X-ray negative for pneumonia or edema. - Start steroid therapy to decrease airway inflammation and address persistent cough and dyspnea. - Continue albuterol inhaler every 4 hours as needed for shortness of breath. - Educated patient on viral etiology of bronchitis, expected improvement within 24-48 hours after starting steroids, and rationale for steroid use. - Provided work note as requested. - Follow-up with your PCP in 3-5 days if symptoms have not improved or sooner if symptoms worsen - Discussed red flags and need for immediate medical evaluation if any occur. - Discussed supportive care treatment with f (more content not included)... [facility] 01-19-2025 History of Presen t illness Narrative [facility] Subjective Rachel Monae is a 49 year old female. Patient presents with: Cough: Chest congestion, sob x 2 weeks Cough Cough and Congestion: - Cough and congestion x2 weeks. - Using Mucinex DM without relief; reports feeling like there's something in my chest that I need to cough out. - Previously prescribed Tessalon Perles, but has been taking Repetussin instead. - Denies fever, chills, or sweating. - Reports significant post-nasal drainage, but denies nasal congestion. - Cough worsens when trying to sleep. - Took doxycycline as prescribed for sinobronchitis on 01/07/25-no improvement. Dyspnea: - Dyspnea x2 weeks. - Using albuterol inhaler Q4H for relief. Back Pain: - Localized back pain, exacerbated by standing up and bending down. Review of Systems Respiratory: Positive for cough. Constitutional: (+) sleep disturbance, (-) fever, (-) chills, (-) diaphoresis Ears/Nose/Mouth/Throat: (+) rhinorrhea, (-) nasal congestion Respiratory: (+) cough, (+) shortness of breath, (-) sputum production Musculoskeletal: (+) back pain Endocrine: (+) cold intolerance Objective BP 144/82 Pulse 93 Temp 36.6 C (97.9 F) Resp 19 Wt 85.4 kg (188 lb 4.4 oz) LMP 12/14/2014 SpO2 97% PAST MEDICAL HISTORY Diagnosis Date Type I (juvenile type) diabetes mellitus without mention of complication, uncontrolled PAST SURGICAL HISTORY Procedure Laterality Date PAST SURGICAL HISTORY OF 05/28/98 removal of axillary cyst ALLERGIES Betadine [Povidone-Iodine] MEDICATIONS albuterol HFA (PROVENTIL HFA, VENTOLIN HFA) 90 mcg/actuation inhaler Inhale 2 puffs as instructed every 6 hours as needed for wheezing/shortness of breath. albuterol HFA (PROVENTIL HFA, VENTOLIN HFA) 90 mcg/actuation inhaler Inhale 2 Puffs as instructed every 4 hours as needed for wheezing/shortness of breath. fluticasone (FLONASE) 50 mcg/actuation nasal spray Use 2 Sprays in each nostril once daily. Rinse mouth after use. insulin aspart (NOVOLOG) 100 unit/mL soln Use as directed in the insulin pump up to 100 units daily0 lisinopril (ZESTRIL, PRINIVIL) 40 mg tablet Take 1 tablet by mouth once daily. pravastatin (PRAVACHOL) 20 mg tablet Take 1 tablet by mouth daily at bedtime. COMPOUNDED PRESCRIPTION by MISCELLANEOUS route. Massotherapy for chronic pain. blood sugar diagnostic, disc(ASCENSIA BREEZE 2 TEST STRIPS) Check BS 6-8 times daily predniSONE (DELTASONE) 10 mg tablet Take 4 tablets by mouth once daily for 3 days, THEN 3 tablets once daily for 3 days, THEN 1 tablet once daily for 3 days. benzonatate (TESSALON PERLES) 100 mg capsule Take 2 capsules by mouth three times daily as needed. (Patient not taking: Reported on 04/11/2019 ) ASPIRIN 81 MG TAB Take one (1) tablet daily . (Patient not taking: Reported on 01/07/2025) MULTIVITAMIN TAB Take one(1) tablet daily. (Patient not taking: Reported on 01/07/2025) FAMILY HISTORY Problem Relation Age of Onset Diabetes Paternal Grandmother Diabetes Father SOCIAL HISTORY[1] Physical Exam Vitals and nursing note reviewed. Constitutional: General: She is not in acute distress. Appearance: Normal appearance. She is not ill-appearing. HENT: Right Ear: Tympanic membrane, ear canal and external ear normal. Left Ear: Tympanic membrane, ear canal and external ear normal. Mouth/Throat: Mouth: Mucous membranes are moist. Pharynx: Oropharynx is clear. No oropharyngeal exudate or posterior oropharyngeal erythema. Cardiovascular: Rate and Rhythm: Normal rate and regular rhythm. Heart sounds: Normal heart sounds. Pulmonary: Effort: Pulmonary effort is normal. No respiratory distress. Breath sounds: Normal breath sounds. No wheezing or rales. Lymphadenopathy: Cervical: No cervical adenopathy. Skin: General: Skin is warm and dry. Findings: No erythema or rash. Neurological: Mental Status: She is alert. { 1. Subacute cough (R05.2) 2. Viral bronchitis (J20.8) - Persistent cough, postnasal drainage, and shortness of breath for 2 weeks; symptoms not improved with prior doxycycline course or Mucinex DM. - Chest X-ray negative for pneumonia or edema. - Start steroid therapy to decrease airway inflammation and address persistent cough and dyspnea. - Continue albuterol inhaler every 4 hours as needed for shortness of breath. - Educated patient on viral etiology of bronchitis, expected improvement within 24-48 hours after starting steroids, and rationale for steroid use. - Provided work note as requested. - Follow-up with your PCP in 3-5 days if symptoms have not improved or sooner if symptoms worsen - Discussed red flags and need for immediate medical evaluation if any occur. - Discussed supportive care treatment with fluids, rest and analgesia. - Discussed expected course of illness Gwendolyn Mccall APRN.CREDIT COLLECTIONS SPECIALIST and Recording using [employer] software for draft documentation of the visit was discussed with the patient/authorized customer sales representative; all questions welcomed and answered. Patient/authorized customer sales representative agreed to proceed Disposition The patient was discharged. Procedures [1] Social History Tobacco Use Smoking status: Never Smokeless tobacco: Never Substance Use Topics Alcohol use: No documented in this encounter [facility] 01-19-2025 History of Presen t illness Narrative Radiology Service Progress Note PATIENT NAME: Rachel Monae DATE OF SERVICE: January 19, 2025 TIME: 12:43 PM PATIENT IDENTITY VERIFICATION COMPLETED USING TWO (2) IDENTIFIERS: Name and Date of confirmed by patient verbally. FALL SCREENING: Has the patient had 2 falls in the last year or 1 fall with injury or currently using an Ambulatory Assistive Device (Walker, Cane, Wheelchair, Crutches, etc.)? No PATIENT GENDER DATA: Assigned female at . status: : No status: NO. PATIENT RELEVANT IMPLANT DATA REVIEWED: Yes PATIENT PRESENTS WITH AN IMPLANTABLE OR ATTACHED LITHOGRAPHIC CAMERA OPERATOR: No RADIOLOGY DEPARTMENT: General X-ray: Exam(s) Completed: Chest X-Ray PERIPHERAL IV DATA: Not applicable SIGNED BY: RT Renee(Jose) January 19, 2025 12:43 PM documented in this encounter [facility] 01-19-2025 Note HNO ID: [id number] Author: DOLORES JULIAN RT(R) Service: ? Author Type: Workgroup Leader Type: Progress Notes Filed: 01/19/2025 12:43 Note Text: Radiology Service Progress Note PATIENT NAME: Rachel Monae DATE OF SERVICE: January 19, 2025 TIME: 12:43 PM PATIENT IDENTITY VERIFICATION COMPLETED USING TWO (2) IDENTIFIERS: Name and Date of confirmed by patient verbally. FALL SCREENING: Has the patient had 2 falls in the last year or 1 fall with injury or currently using an Ambulatory Assistive Device (Walker, Cane, Wheelchair, Crutches, etc.)? No PATIENT GENDER DATA: Assigned female at . status: : No status: NO. PATIENT RELEVANT IMPLANT DATA REVIEWED: Yes PATIENT PRESENTS WITH AN IMPLANTABLE OR ATTACHED LITHOGRAPHIC CAMERA OPERATOR: No RADIOLOGY DEPARTMENT: General X-ray: Exam(s) Completed: Chest X-Ray PERIPHERAL IV DATA: Not applicable SIGNED BY: RT Renee(Jose) January 19, 2025 12:43 PM [facility] 01-07-2025 Note HNO ID: [id number] Author: PRUDENCIO MOSER APRN.CREDIT COLLECTIONS SPECIALIST Service: ? Author Type: Nurse Practitioner Type: Progress Notes Filed: 01/07/2025 18:04 Note Text: [facility] Subjective Rachel Monae is a 49 year old female. Patient presents with: Cough: Cough, chest congestion and Shortness of Breath x 1 week HPI Nontoxic-appearing 49-year-old female presents urgent care chief complaint sinus pressure chest congestion fatigue. Patient states symptoms started a little over 1 week ago. Has worsened. States feels like it moved to her chest. States history of bronchitis this is similar. OTC medications none that have helped. Denies any fevers. No chest pain or pleuritic pain. No hemoptysis. Does have some shortness of breath with coughing only. Cough is most prominent and bothersome at night. Past medical history prescription medications and allergies reviewed. Review of Systems Constitutional: Negative for chills, diaphoresis, fatigue and fever. HENT: Positive for rhinorrhea, sinus pressure and sinus pain. Negative for congestion, drooling, ear discharge, ear pain, sneezing, sore throat and trouble swallowing. Eyes: Negative for pain, discharge, redness, itching and visual disturbance. Respiratory: Positive for cough. Negative for chest tightness, shortness of breath and wheezing. Cardiovascular: Negative for chest pain. Gastrointestinal: Negative for abdominal distention, abdominal pain, blood in stool, constipation, diarrhea, nausea and vomiting. Genitourinary: Negative for difficulty urinating and dysuria. Musculoskeletal: Negative for arthralgias, joint swelling, neck pain and neck stiffness. Skin: Negative for rash. Neurological: Positive for headaches. Negative for dizziness, weakness and numbness. Objective BP 142/80 Pulse 76 Temp 36.8 ?C (98.2 ?F) (Tympanic) Resp 18 Wt 81.8 kg (180 lb 5.4 oz) LMP 12/14/2014 SpO2 100% Physical Exam Constitutional: Appearance: Normal appearance. HENT: Head: Normocephalic. Jaw: No trismus, tenderness, swelling or pain on movement. Nose: Congestion present. Right Sinus: Maxillary sinus tenderness present. Left Sinus: Maxillary sinus tenderness present. Mouth/Throat: Mouth: Mucous membranes are moist. Pharynx: Oropharynx is clear. Uvula midline. No oropharyngeal exudate or posterior oropharyngeal erythema. Eyes: Conjunctiva/sclera: Conjunctivae normal. Cardiovascular: Rate and Rhythm: Normal rate. Pulmonary: Effort: Pulmonary effort is normal. Breath sounds: Normal breath sounds. No wheezing, rhonchi or rales. Abdominal: Palpations: Abdomen is soft. Tenderness: There is no abdominal tenderness. There is no guarding or rebound. Musculoskeletal: General: Normal range of motion. Cervical back: Normal range of motion and neck supple. No edema, erythema or rigidity. No pain with movement. Normal range of motion. Lymphadenopathy: Cervical: No cervical adenopathy. Skin: General: Skin is warm. Findings: No rash. Neurological: General: No focal deficit present. Mental Status: She is alert and oriented to person, place, and time. Mental status is at baseline. {ASSESSMENT/PLAN: 1. Sinobronchitis - ICD9: 473.9, 490, ICD10: J32.9, J40 Diagnosed with sinobronchitis. Patient states has URI symptoms. History of bronchitis this is similar. Placed on doxycycline Tessalon Perles as needed albuterol as needed. Red flags ER evaluation discussed. Patient was educated on supportive therapies. Patient will follow up with primary care provider as needed. Patient was instructed to immediately proceed to emergency room for any new, worsening, or symptoms lasting longer than anticipated. The patient's clinical presentation is otherwise unremarkable at this time. Based on exam and clinical finding, the patient is stable for discharge. Plan of care was discussed with patient. Patient verbalizes understanding and agrees to plan of care. This note was generated using [employer] software. It may contain errors in wording, punctuation, or spelling. Prudencio Moser APRN.CREDIT COLLECTIONS SPECIALIST History and Record Review Clinical information obtained from an independent historian. History obtained from or confirmed by: parent. External record(s) reviewed: prior outpatient record. Disposition The patient was discharged. OTC Medications were advised: Procedures [facility] 01-07-2025 History of Presen t illness Narrative [facility] Jeremy Monae is a 49 year old female. Patient presents with: Cough: Cough, chest congestion and Shortness of Breath x 1 week HPI Nontoxic-appearing 49-year-old female presents urgent care chief complaint sinus pressure chest congestion fatigue. Patient states symptoms started a little over 1 week ago. Has worsened. States feels like it moved to her chest. States history of bronchitis this is similar. OTC medications none that have helped. Denies any fevers. No chest pain or pleuritic pain. No hemoptysis. Does have some shortness of breath with coughing only. Cough is most prominent and bothersome at night. Past medical history prescription medications and allergies reviewed. Review of Systems Constitutional: Negative for chills, diaphoresis, fatigue and fever. HENT: Positive for rhinorrhea, sinus pressure and sinus pain. Negative for congestion, drooling, ear discharge, ear pain, sneezing, sore throat and trouble swallowing. Eyes: Negative for pain, discharge, redness, itching and visual disturbance. Respiratory: Positive for cough. Negative for chest tightness, shortness of breath and wheezing. Cardiovascular: Negative for chest pain. Gastrointestinal: Negative for abdominal distention, abdominal pain, blood in stool, constipation, diarrhea, nausea and vomiting. Genitourinary: Negative for difficulty urinating and dysuria. Musculoskeletal: Negative for arthralgias, joint swelling, neck pain and neck stiffness. Skin: Negative for rash. Neurological: Positive for headaches. Negative for dizziness, weakness and numbness. Objective BP 142/80 Pulse 76 Temp 36.8 C (98.2 F) (Tympanic) Resp 18 Wt 81.8 kg (180 lb 5.4 oz) LMP 12/14/2014 SpO2 100% Physical Exam Constitutional: Appearance: Normal appearance. HENT: Head: Normocephalic. Jaw: No trismus, tenderness, swelling or pain on movement. Nose: Congestion present. Right Sinus: Maxillary sinus tenderness present. Left Sinus: Maxillary sinus tenderness present. Mouth/Throat: Mouth: Mucous membranes are moist. Pharynx: Oropharynx is clear. Uvula midline. No oropharyngeal exudate or posterior oropharyngeal erythema. Eyes: Conjunctiva/sclera: Conjunctivae normal. Cardiovascular: Rate and Rhythm: Normal rate. Pulmonary: Effort: Pulmonary effort is normal. Breath sounds: Normal breath sounds. No wheezing, rhonchi or rales. Abdominal: Palpations: Abdomen is soft. Tenderness: There is no abdominal tenderness. There is no guarding or rebound. Musculoskeletal: General: Normal range of motion. Cervical back: Normal range of motion and neck supple. No edema, erythema or rigidity. No pain with movement. Normal range of motion. Lymphadenopathy: Cervical: No cervical adenopathy. Skin: General: Skin is warm. Findings: No rash. Neurological: General: No focal deficit present. Mental Status: She is alert and oriented to person, place, and time. Mental status is at baseline. {ASSESSMENT/PLAN: 1. Sinobronchitis - ICD9: 473.9, 490, ICD10: J32.9, J40 Diagnosed with sinobronchitis. Patient states has URI symptoms. History of bronchitis this is similar. Placed on doxycycline Tessalon Perles as needed albuterol as needed. Red flags ER evaluation discussed. Patient was educated on supportive therapies. Patient will follow up with primary care provider as needed. Patient was instructed to immediately proceed to emergency room for any new, worsening, or symptoms lasting longer than anticipated. The patient's clinical presentation is otherwise unremarkable at this time. Based on exam and clinical finding, the patient is stable for discharge. Plan of care was discussed with patient. Patient verbalizes understanding and agrees to plan of care. This note was generated using [employer] software. It may contain errors in wording, punctuation, or spelling. Prudencio Moser APRN.MAYA History and Record Review Clinical information obtained from an independent historian. History obtained from or confirmed by: parent. External record(s) reviewed: prior outpatient record. Disposition The patient was discharged. OTC Medications were advised: Procedures documented in this encounter [facility] 12-02-2024 Radiology Diagnostic study note [facility] Imaging Services [address] [place] [id number] Shoulder min 2 Views MR#: [id number] Acct: [id number] Name: RACHEL MONAE Rep #: [id number] : 1975 F 49 From: Stephanie Owen MD PCP: Dr. Cindy Weber, Status: REG CLI Study:Shoulder min 2 Views Date of Exam: 12/02/24 Exam# [id number] Ordering Dr: Ra michaela Kay CONSULTING HR PROFESSIONAL-C PROCEDURE: SHOULDER MIN 2 VIEWS 12/02/2024 REASON FOR EXAM: CONCERN FOR FRACTURE TECHNIQUE: SHOULDER MIN 2 VIEWS COMPARISON: None RAD/Shoulder min 2 Views IMPRESSION: No acute fracture or dislocations. Mild degenerative changes of the left shoulder. No acute soft tissue abnormalities. No radiographic foreign body. Reading Location: [id number] CC: CONSULTING HR PROFESSIONAL-C Suzi Kay; Dr. Cindy Weber DO ~ [employer] Worker: Signed [facility] Evaluation note No assessment inform ation available [facility] Work Phone: Evaluation note Diagnosis Sinobronchitis- Primary Unspecified sinusitis (chronic) documented in this encounter [facility] note* Diagnosis Subacute cough- Primary Cough Viral bronchitis Acute bronchitis Subacute cough Cough documented in this encounter [facility] note* Diagnosis Subacute cough Cough documented in this encounter [facility] for referral (narrative)No reason [facility] Work Phone: Chief Complaint and Reason for Visit Chief Complaint SCREENING Family History No Family History Records Found Relationship Condition Age at Onset Recorded Date/T kiana father Diabetes mellitus Unknown Cardiac disease Unknown High blood cholesterol Unknown Alzheimer's disease Unknown mother Asthma Unknown Weight disorder Unknown grandfather Malignant neoplasm of lung Unknown aunt Malignant neoplasm Unknown Malignant neoplasm of lung Unknown Advance Directives No Advanced Directives Records Found Advance Directive Response Recorded Date/ Time Advance Directives No September 19, 022 5:16pm Living Will No September 19, 2021 5:16pm Power of Laboratory Equipment Cleaner No September 19 5:16pm Advance Directive Response Recorded Date/ Time Advance Directives No September 19, 022 5:16pm Summary Purpose Additional Source Comments Care Teams (unrecognized sec tion and content) Team Status: Active Member Role Status Dates Dr. Cindy Weber DO Family Provider Active Dr. Cindy Weber DO Primary Care Provider Active Team Status: Inactive Member Role Status Dates Dr. Cindy Weber DO Primary Care Provide r, Attending Provider, Referring Provider Active Team Status: Active Member Role/Relationship Status Dates Dr. Cindy Weber DO Family Provider Active Dr. Cindy Weber DO Primary Care Provider Active Team Status: Inactive Member Role/Relationship Status Dates Dr. Cindy Weber DO Primary Care Provider Active Start: December 02, 2024 End: December 02, 2024 JULITO Hyde Attending Provider Active St art: December 02, 2024 End: December 02, 2024 JULITO Hyde Referring Provider Active St art: December 02, 2024 End: December 02, 2024 Can Line Examiner Relationship Specialty Start Date End Date Cindy Weber DO PCP - General Family Medicine 01/11/15 Can Line Examiner Relationship Specialty Start Date End Date Cindy Weber DO PCP - General Family Medicine 01/11/15 Can Line Examiner Relationship Specialty Start Date End Date Cindy Weber DO PCP - General Family Medicine 01/11/15 Goals (unrecognized section and content) Goals may be documented in a n alternate sectionGoals may be documented in an alternate section INFORMATION SOURCE (unrecogn ized section and content) DATE CREATED AUTHOR 12/11/2024 [facility] DATE CREATED AUTHOR AUTHOR'S ORGANIZ ATION 01/20/2025 [facility] Source Comments (unrecognize d section and content) In the event this informatio n is protected by the Federal Confidentiality of Alcohol and Drug Abuse Patient Records regulations: The Federal rules restrict any use of the information to criminally investigate or prosecute any alcohol or drug abuse patient.[facility] the event this information is protected by the Federal Confidentiality of Alcohol and Drug Abuse Patient Records regulations: The Federal rules restrict any use of the information to criminally investigate or prosecute any alcohol or drug abuse patient.[facility] the event this information is protected by the Federal Confidentiality of Alcohol and Drug Abuse Patient Records regulations: The Federal rules restrict any use of the information to criminally investigate or prosecute any alcohol or drug abuse patient.[facility] Reason for Visit (unrecogniz ed section and content) Reason Comments Cough Cough, chest congest ion and Shortness of Breath x 1 week Reason Comments Cough Chest congestion, so b x 2 weeks FOR RECORDS PERTAINING TO PATIENTS WHO ARE OR HAVE BEEN ENROLLED IN A CHEMICAL DEPENDENCY/SUBSTANCEABUSE PROGRAM, SOME INFORMATION MAY BE OMITTED. This clinical summary was aggregated from multiple sources. Caution should be exercised in using it in the provision of clinical care. This summary normalizes information from multiple sources, and as a consequence, information in this document may materially change the coding, format and clinical context of patient data. In addition, data may be omitted in some cases. CLINICAL DECISIONS SHOULD BE BASED ON THE PRIMARY CLINICAL RECORDS. [facility]. provides no warranty or guarantee of the accuracy or completeness of information in this document.
== END | disposition home or self-care (01) ==
LOC: OPMRI 07:08
PROVIDERS: PCP Family Medicine; Referring Provider Family Medicine; Visit Provider Family Medicine
DX: M25.512 Pain in left shoulder (principal); R29.898 Other symptoms and signs involving the musculoskeletal system; M75.102 Unspecified rotator cuff tear or rupture of left shoulder, not specified as traumatic
CPT/HCPCS: 73221